=== PATIENT | female | born 1940 | race Caucasian/White ===

== ENCOUNTER 2017-08-05 16:53 | Observation (INO) | payer MEDICARE ==
[~2017-08-05 16:53] MED LIST: ISOVUE-370 76%-LOCM 1 ML ONE
[2017-08-05 17:30] LABS: #Basophils 0.1 thou/uL (0.0-0.2); #Eosinphils 0.4 thou/uL (0.0-0.7); #Lymphocytes 1.3 thou/uL (1.20-3.40); #Monocytes 1.1 thou/uL (0.11-0.59); #Neutrophils 11.8 thou/uL (1.40-6.50); %Basophils 0.3 % (0.0-1.0); %Eosinophils 2.7 % (0.0-10.0); %Lymphocytes 8.7 % (21.0-51.0); %Monocytes 7.5 % (0.0-10.0); %Neutrophils 80.7 % (42.0-75.0); Hemoglobin 12.9 g/dL (12.0-16.0); Mean Corpuscular HGB CONC 32.6 g/dL (32.0-36.0); Mean Corpuscular Hemoglobin 29.9 pg (27.0-31.0); Mean Corpuscular Volume 91.8 fL (78.0-98.0); Mean Platelet Volume 5.8 fL (7.4-10.4); Platelet Count 296 thou/uL (130-400); RBC Distribution Width 11.7 % (11.5-14.5); Red Blood Cell (RBC) Count 4.31 mill/uL (4.20-5.40); White Blood Cell (WBC) Count 14.6 thou/uL (4.8-10.8)
--- NOTE | 2017-08-05 17:47 | RAD ---
RADIOGRAPH CHEST 1 VIEW: Date: 08/05/17 Time: 5:23 p.m. HISTORY: 76-year-old female with dyspnea and chest pain. COMPARISON: 09/13/16. FINDINGS: Sternotomy wires. Multilead left subclavian AICD, the generator of which partially obscures the left lung. No cardiomegaly. Prominent interstitial markings, especially at lower lung zones bilaterally. P atchy air space densities at right lower lung zone is similar in appearance to the previous study. Th e only possible interval change is mild pulmonary scar or subsegmental atelectasis at the left mid an d lower lung zones on the current study. No pneumothorax. No major interval change overall. IMPRESSION: 1. Air space density at right lower lung zone which appears similar to 09/13/16. Uncertain whether chronic or recurrent acute. 2. Automatic implantable cardioverter/defibrillator. TEQUILA [] POS: RANI
[2017-08-05 17:58] LABS: ALT (SGPT) 15 U/L (8-55); AST (SGOT) 27 U/L (5-34); Albumin 3.7 g/dL (3.4-4.8); Alkaline Phosphatase 121 U/L (40-150); Anion Gap 13 mmol/L (10-20); BUN (Urea Nitrogen) 14 mg/dL (9.8-20.1); Bilirubin, Total 0.5 mg/dL (0.2-1.2); CK (CPK) 248 U/L (29-168); Calc. Creatinine Clearance 0 mL/min (70-130); Calcium 9.5 mg/dL (7.8-10.44); Carbon Dioxide 27 mmol/L (23-31); Chloride 99 mmol/L (98-107); Estimated GFR-MDRD 39; Globulin 3.8 g/dL (2.4-3.5); Glucose 79 mg/dL (83-110); Potassium 4.7 mmol/L (3.5-5.1); Protein, Total 7.5 g/dL (6.0-8.3); Sodium 134 mmol/L (136-145)
[2017-08-05] MEDS ORDERED: Levalbuterol HCl 1.25 MG/0.5 ML NEB NEB SCH (18:00)
[2017-08-05 18:03] LABS: Troponin I 0.019 ng/mL (< 0.028)
[2017-08-05 18:07] LABS: CKMB 9.5 ng/mL (0-6.6)
[2017-08-05] MEDS ORDERED: Dexamethasone 4 mg/ml Vial ONE ×2 (18:13→19:50)
--- NOTE | 2017-08-05 19:45 | CT ---
CTA THORAX WITH CONTRAST: (Computed Tomographic Angiography, chest(noncoronary) with contrast material, and image postprocessin g) (PE protocol) DATE: 08/05/17 TIME: 6:48 p.m. HISTORY: 76-year-old female with productive cough. TECHNIQUE: IV injection of iodinated contrast: 60 mL Isovue 370 Scan acquisition timing attempted to coincide with iodinated contrast bolus reaching maximal density in pulmonary arteries. 3D MIP reconstructions. FINDINGS: There is good opacification of the pulmonary arteries. There is no pulmonary thromboembolism. Atheros clerotic plaque, ectasia and tortuosity, without aneurysm or dissection, involving the thoracic aorta . Confluent mediastinal subcarinal lymphadenopathy of moderate size. Mild bilateral hilar lymphadenop athy, left greater than right. Right pretracheal and left paratracheal moderate sized lymphadenopathy . Trachea and left and right mainstem bronchi are patent and clear. Irregular, patchy, moderate pulmonary densities in the bilateral lower lobes, predominantly in peribr onchiolar and perivascular distributions. Multiple small cystic lung changes centrally in the right b asilar lower lobe infiltrate. Similar but smaller such pulmonary lesions in the lingula, and to a les ser degree bilateral upper lobes, and right middle lobe. No pleural effusion or pneumothorax. Left mathews bclavian AICD. IMPRESSION: 1. No pulmonary thromboembolism. 2. Bilateral infiltrates, moderate in the bilateral lower lobes, and milder elsewhere. Uncertain whether chronic, acute, or a combination of both. 3. Nonspecific mediastinal and hilar lymphadenopathy. shad[] POS: RANI
[2017-08-05] MEDS ORDERED: Sodium Chloride 0.9% 100 ML ONE ×2 (20:43→20:53)
[2017-08-05] MEDS ORDERED: cefTRIAXone\\ROCEPHIN 2 GM VIAL ONE (20:53)
[2017-08-05] MEDS ORDERED: Azithromycin 500 MG VIAL ONE (21:49)
[2017-08-05] MEDS ORDERED: Ondansetron HCl/PF 4 MG/2 ML Vial IVP PRN (22:50)
[2017-08-05] MEDS ORDERED: Acetaminophen 325 MG TAB PO PRN (22:50)
[2017-08-05] MEDS ORDERED: Ondansetron ODT 4 MG TAB SL PRN (22:50)
[2017-08-05 22:59] VITALS: BMI 30.2
[2017-08-05 23:48] LABS: Troponin I Less than 0.010 ng/mL (< 0.028)
[2017-08-06] MEDS ORDERED: HYDROcodone/Acetaminophen 5/325 mg Tablet PO SCH (00:15)
[2017-08-06] MEDS ORDERED: Acetaminophen 325 MG TAB PO PRN (00:35)
[2017-08-06] MEDS ORDERED: HYDROcodone/Acetaminophen 7.5/325 mg Tablet PO PRN (00:35)
[2017-08-06] MEDS ORDERED: Oxybutynin 5 MG TAB PO PRN (00:39)
[2017-08-06] MEDS ORDERED: Furosemide 20 MG TAB PO PRN (00:39)
[2017-08-06] MEDS ORDERED: Levalbuterol HCl 0.63 MG/3 ML NEB NEB PRN (00:40)
[2017-08-06] MEDS ORDERED: Ipratropium Bromide 2.5 ml Neb NEB PRN (00:41)
--- NOTE | 2017-08-06 01:29 | HP ---
PRIMARY CARE PHYSICIAN: Mono Nunez MD CHIEF COMPLAINT: Shortness of breath. HISTORY OF PRESENT ILLNESS: Ms. An is a pleasant 76-year-old lady who was seen at [facility] on 08/06/2017. She reports shortness of breath over the last 3 or 4 days. She r eports that the shortness of breath is worse with exertion. She denies any orthopnea or paroxysmal n octurnal dyspnea. She complains of cough. Cough is productive of clear sputum. She denies any feve rs or chills. She uses oxygen at home during the night, at 2 liters per minute. She came to the emergency room because of ongoing shortness of breath. REVIEW OF SYSTEMS: All other systems reviewed and found to be negative. PAST MEDICAL HISTORY: Coronary artery disease, status post PCI with stents, congestive heart failure , asthma, chronic obstructive pulmonary disease, chronic renal insufficiency, and spinal stenosis. PAST SURGICAL HISTORY: Coronary artery bypass graft, back surgery, cholecystectomy, section , hysterectomy, left knee surgery, and defibrillator placement. PSYCHIATRIC HISTORY: Anxiety and depression. SOCIAL HISTORY: Patient denies tobacco use, alcohol use, or recreational drug use. CODE STATUS: She is FULL CODE. Her daughter is the surrogate decision maker. ALLERGIES: ALBUTEROL, FENTANYL, OPANA, PENICILLIN, PREDNISONE, SOLU-MEDROL, SULFA, TORADOL, TRAMADOL , and TYLENOL #3. CURRENT MEDICATIONS: Include ProAir HFA 2 puffs every 6 hours as needed, Xanax 0.25 mg 3 times a day , aspirin 81 mg daily, Symbicort 160/4.5 two puffs 2 times a day, Plavix 37.5 mg daily, dextromethorp parkinson 20 mg every 4 hours as needed, Lexapro 20 mg daily, estradiol 0.5 mg daily, Vytorin half a tablet every other day, Lasix 20 mg as needed, Neurontin 600 mg at bedtime, [place] p.r.n., Atrovent 2 puffs 3 times a day, Prevacid 15 mg daily, Singulair 10 mg daily, oxybutynin 5 mg daily as needed, potassiu m chloride 20 mEq at bedtime, Aldactone 25 mg daily, and Ambien 5 mg at bedtime. FAMILY HISTORY: Significant for coronary artery disease and colon cancer. PHYSICAL GENERAL: Ms. An is awake and alert, not in acute distress. VITAL SIGNS: Blood pressure is 148/82, pulse is 84. She is breathing at rate of 18, and saturating 95% on 2 liters of oxygen. She is afebrile. EYES: No scleral icterus, no conjunctival pallor. ENT: Moist mucosal membranes, no oropharyngeal erythema or exudates. NECK: Supple, nontender, normal range of movement, trachea is midline. RESPIRATORY: Accessory muscles of breathing are active. Chest wall movements are symmetric bilatera lly. She has diffused expiratory wheezes, overall lung edward. CARDIOVASCULAR: S1 and S2 are heard, regular. Peripheral pulses palpable. No carotid bruit, no per icardial rub. ABDOMEN: Soft, nontender, bowel sounds heard, no hepatomegaly, no splenomegaly. SKIN: No rashes or subcutaneous nodules. LYMPHATIC: No cervical lymphadenopathy. NEUROLOGIC: Cranial nerves II-XII intact. Deep tendon reflexes 2+. MUSCULOSKELETAL: Power is 5/5 in all 4 extremities. PSYCHIATRIC: Normal mood, normal affect. Patient is oriented to person and place, not to time. LABORATORY DATA: Ms. An's labs and investigations were reviewed. I reviewed her electrocardiogr am, which shows atrial sensed ventricular paced rhythm, no ST changes to suggest an acute coronary sy ndrome. I also reviewed her chest x-ray, which shows right lower lobe infiltrate, which was also on old chest x-ray from 09/13/2016. She also had CT angiogram of the chest, which did not show any pulm onary thromboembolism. She has bilateral infiltrates as well as nonspecific mediastinal and hilar ly mphadenopathy. She has leukocytosis with 14,600 white cells, of which 80.7% are neutrophils, normal hemoglobin, normal platelet count, elevated D-dimer of 2.15, decreased sodium of 134, normal potassiu m, elevated creatinine of 1.32, last known creatinine 1.17 on 09/13/2016, elevated CK of 248, normal troponin I x2, normal BNP, and normal albumin. ASSESSMENT AND PLAN: Ms. An is a pleasant 76-year-old lady who was seen at [facility] on 08/06/2017. Her problem list includes: 1. Acute on chronic respiratory failure: Ms. An is presenting with acute on chronic respiratory failure, most likely secondary to chronic obstructive pulmonary disease exacerbation. She will be a dmitted to the hospital for further management. 2. Chronic obstructive pulmonary disease exacerbation: She will receive oxygen, steroids, bronchodi lators, and antibiotics. She has received ceftriaxone and azithromycin in the emergency room, which I will continue. Given her allergy to ALBUTEROL, she will receive Xopenex nebulizers. Given her all ergy to PREDNISONE, she will be given dexamethasone. She has received dexamethasone and Xopenex in t emergency room without any adverse effects. 3. Coronary artery disease. Patient denies any chest pain at this time, coronary artery disease rajiv ears to be stable. 4. Chronic kidney disease: Appears to be stable. 5. Congestive heart failure. She has a history of congestive heart failure. She does not appear to be in congestive heart failure exacerbation at this time. Many thanks for allowing me to participate in your patient's care. Please feel free to contact me wi th any questions or concerns. LEVEL OF RISK: High. LEVEL OF COMPLEXITY: High.
[2017-08-06] MEDS ORDERED: Ipratropium Bromide 2.5 ml Neb NEB SCH (02:30)
[2017-08-06] MEDS ORDERED: Levalbuterol HCl 1.25 MG/0.5 ML NEB NEB SCH (02:30)
[2017-08-06] MEDS ORDERED: Sodium Chloride For Inhalation 0.9% 3 ML NEB NEB SCH (02:30)
[2017-08-06] MEDS: Ipratropium Bromide 2.5 ml Neb NEB SCH ×3 (02:32→12:28)
[2017-08-06 03:06] LABS: #Eosinphils 0.1 thou/uL (0.0-0.7); #Lymphocytes 0.6 thou/uL (1.20-3.40); #Monocytes 0.1 thou/uL (0.11-0.59); #Neutrophils 15.1 thou/uL (1.40-6.50); %Eosinophils 0.5 % (0.0-10.0); %Lymphocytes 3.8 % (21.0-51.0); %Monocytes 0.8 % (0.0-10.0); %Neutrophils 94.9 % (42.0-75.0); Hemoglobin 13.4 g/dL (12.0-16.0); Mean Corpuscular HGB CONC 33.2 g/dL (32.0-36.0); Mean Corpuscular Hemoglobin 30.2 pg (27.0-31.0); Mean Corpuscular Volume 91.2 fL (78.0-98.0); Mean Platelet Volume 5.6 fL (7.4-10.4); Platelet Count 288 thou/uL (130-400); RBC Distribution Width 11.8 % (11.5-14.5); Red Blood Cell (RBC) Count 4.42 mill/uL (4.20-5.40); White Blood Cell (WBC) Count 15.9 thou/uL (4.8-10.8)
[2017-08-06 03:43] LABS: Troponin I 0.013 ng/mL (< 0.028)
[2017-08-06 03:48] LABS: Anion Gap 16 mmol/L (10-20); BUN (Urea Nitrogen) 12 mg/dL (9.8-20.1); Calc. Creatinine Clearance 49 mL/min (70-130); Calcium 9.7 mg/dL (7.8-10.44); Carbon Dioxide 22 mmol/L (23-31); Chloride 101 mmol/L (98-107); Estimated GFR-MDRD 47; Glucose 154 mg/dL (83-110); Potassium 5.1 mmol/L (3.5-5.1); Sodium 134 mmol/L (136-145)
[2017-08-06] MEDS ORDERED: Mometasone/Formoterol 120 PUFF INHALER INH SCH (06:30)
[2017-08-06] MEDS ORDERED: Ipratropium Oral Inhaler (200 INHALATIONS) INH SCH (06:30)
[2017-08-06] MEDS: Levalbuterol HCl 0.63 MG/3 ML NEB NEB SCH ×2 (06:46→12:40)
[2017-08-06] MEDS ORDERED: Dexamethasone 4 MG TAB PO SCH (08:00)
[2017-08-06] MEDS ORDERED: Spironolactone 25 MG TAB PO SCH (08:00)
[2017-08-06] MEDS ORDERED: Clopidogrel Bisulfate 75 MG TAB PO SCH (09:00)
[2017-08-06] MEDS ORDERED: Ezetimibe 10 MG TAB PO SCH (09:00)
[2017-08-06] MEDS ORDERED: Enoxaparin Sodium 30 MG/0.3 ML SYRINGE SC SCH (09:00)
[2017-08-06] MEDS ORDERED: ALPRAZolam 0.25 MG TAB PO SCH (09:00)
[2017-08-06] MEDS ORDERED: Escitalopram Oxalate 20 mg Tablet PO SCH (09:00)
[2017-08-06] MEDS ORDERED: SODIUM CHLORIDE 0.9% IVPB SCH (09:00)
[2017-08-06] MEDS ORDERED: cefTRIAXone\\ROCEPHIN 1 GM in Sodium Chloride 0.9% 100 ML IVPB SCH ×2 (09:00→21:00)
[2017-08-06] MEDS ORDERED: DEXAMETHASONE IVPB SCH (09:00)
[2017-08-06] MEDS ORDERED: Estradiol 1 MG TAB PO SCH (09:00)
[2017-08-06] MEDS ORDERED: Montelukast Sodium 10 mg Tablet PO SCH (09:00)
[2017-08-06] MEDS: Dextromethorphan Polistirex 30 MG/5 ML (89 ML BOTTLE) PO SCH (10:20)
[2017-08-06 11:14] VITALS: BP 141/68; TEMP 97.8
[2017-08-06] MEDS ORDERED: Levalbuterol HCl 0.63 MG/3 ML NEB NEB SCH (13:00)
[2017-08-06] MEDS ORDERED: Simvastatin 5 MG TAB PO SCH (21:00)
[2017-08-06] MEDS ORDERED: Gabapentin 300 MG CAP PO SCH (21:00)
[2017-08-06] MEDS ORDERED: Potassium Chloride 20 MEQ TAB PO SCH (21:00)
[2017-08-06] MEDS ORDERED: Zolpidem Tartrate 5 MG TAB PO SCH (21:00)
[2017-08-06] MEDS ORDERED: Azithromycin 500 MG in Sodium Chloride 0.9% 250 ML 250 ML IVPB SCH (22:00)
--- NOTE | 2017-08-06 22:45 | DIS ---
DATE OF ADMISSION: 08/05/2017 DATE OF DISCHARGE: 08/06/2017 PRIMARY CARE PHYSICIAN: Dr. Mono Nunez. MEDICATIONS: Reconciled and unchanged at discharge. 1. Xanax 0.25 mg t.i.d. 2. Symbicort 160/4.5 two puffs b.i.d. 3. Plavix 75 mg one-half tablet daily. 4. Dextromethorphan 20 mL every 4 hours as needed. 5. Lexapro 20 mg daily. 6. Estradiol 0.5 mg daily. 7. Vytorin 10 mg-10 mg 0.5 tablet every other day. 8. Lasix 20 mg - one or two tablets daily as needed for swelling 9. Neurontin 600 mg at bedtime. 10. [place] 10/325 one or two tablets every 4 hours as needed. 11. Atrovent 4 puffs four times a day. 12. Prevacid 15 mg daily. 13. Singulair 10 mg daily. 14. Oxybutynin 5 mg daily as needed. 15. Potassium chloride 20 mEq at bedtime. We will take an extra dose if she uses Lasix. 16. Aldactone 25 mg daily. 17. Ambien 5 mg at bedtime. Medications removed from list as pt reports she does not take: 1. Aspirin 81 mg 2. ProAir FINAL DIAGNOSES: 1. Acute on chronic respiratory failure, resolved. 2. Chronic hypoxia requiring supplemental oxygen. 3. Known chronic obstructive pulmonary disease, asthma, and possibly other lung diseases. 4. Coronary artery disease with history of stents and coronary artery bypass grafting and AICD in place. 5. Chronic back pain. 6. Chronic kidney disease, stable. 7. Bilateral infiltrates on CT exam and nonspecific hilar and mediastinal lymphadenopathy. HISTORY OF PRESENT ILLNESS: Ms. An is a 76-year-old lady with history of COPD, coronary artery disease, chronic kidney disease, who presents to the emergency room with her family. She reports they said she is not breathing well , however she denies any problems. Patient relates a history that she has been taking Benadryl over the past few days due to a rash and woke up on the commode at home. She states she fell asleep secondary to the Benadryl and when she woke up, her legs were numb and she could not walk. She called her grandson, who was concerned that she was not breathing well. Other family was called and patient ultimately ended up in the emergency room. She denies any difficulty with breathing. She does report some chronic cough that is slightly productive, denies any fevers, chills, chest pain, nausea, or vomiting. HOSPITAL COURSE: Patient was started on antibiotics to cover for a COPD exacerbation as well as steroids with dexamethasone. On day of discharge, she reports her breathing is at baseline. She denies any desire to remain in the hospital and requests discharge to home. She also declines continuing any steroids or antibiotics that she does not feel that she has been sick. She feels that this hospitalization was unnecessary and only because of the concern of her family rather than her concerns. Patient uses intermittent oxygen at home during the day and continuous at night. She has been wearing it with ambulation and at rest with sats of at least 94% at rest with 0.5L NC. Patient does have some dry sounding rales on exam, I am uncertain if this is chronic and related to a possible interstitial lung disease component, if related to her heart, although her BNP is low. This was discussed with her Concrete Plant Laborer Dr. Shepard who reports a similar exam in the past. He also states her fluid status has been stable up to July 26 and requests that she transmit her device on arrival home so he can evaluate for changes. With that information, with any concerns, she will be contacted with changes to medications or for an appointment. Given the patient is at her reported baseline, declines steroids and antibiotics , she does meet criteria for discharge to home. She is aware of return for care precautions, and will follow up with her Plodding Machine Operator Dr. Ortiz with any concerns. PHYSICAL EXAMINATION: VITAL SIGNS: On day of discharge, temperature 97.8, pulse 70, respirations 18, saturation is 93%, and the computer reports nasal cannula, the patient is on room air, blood pressure 141/68. GENERAL: Awake, alert, responsive, speaking clearly in full sentences, in no apparent distress. LUNGS: Some bilateral rales at the bases that sound dry, good air movement, no audible wheezing or rhonchi. HEART: Normal S1, S2, regular rate and rhythm. No significant murmur. ABDOMEN: Soft. Present bowel sounds. Nontender, nondistended. EXTREMITIES: No clubbing, cyanosis, or edema. PACKER FINDINGS AND TEST RESULTS: 1. CBC: 15.9, 13.4, 40.3, 288. 2. D-dimer was 2.15. 3. Chemistry: 134, 5.1, 101, 22, 12, 1.13 with a glucose of 154. 4. Troponin x3 are negative. 5. BNP 23. 6. Total protein 7.5, albumin 3.7, alkaline phosphatase 121. AST 27, ALT 15. CT angiogram is negative for PE, it does show bilateral infiltrates, moderate in the bilateral lower lobes, uncertain chronic acute or combination, and nonspecific mediastinal and hilar lymphadenopathy. Chest x-ray shows air space density at the right lower lung zone, which appears similar to 09/2016, uncertain of chronic or recurrent and AICD. DIET: Heart-healthy, per the instructions of her health care social worker. CODE STATUS: FULL. ACTIVITIES: As tolerated, patient does report wearing of oxygen at night and if needed during the day. I Reviewed with patient this hospitalization, the importance of followup as with the primary care provider as well as her health care social worker, and her shoe cutter, Dr. Ortiz as needed, to see care precautions. She demonstrates understanding. Total time coordinating discharge is 45 minutes. FOLLOWUP: 1. To transmit her device information today for Dr. Shepard/Cardiology. His office will contact her with any changes or appointment needs. 2. With the primary care provider Dr. Nunez within a week. 3. With any breathing concerns, please follow up with Dr. Ortiz. [facility]
[2017-08-07] MEDS ORDERED: Enoxaparin Sodium 40 MG/0.4 ML SYRINGE SC SCH (09:00)
--- NOTE | 2017-08-09 12:58 | EKG ---
Test Reason : Blood Pressure : / mmHG Vent. Rate : 082 BPM Atrial Rate : 082 BPM P-R Int : 138 ms QRS Dur : 100 ms QT Int : 390 ms P-R-T Axes : 050 105 081 degrees QTc Int : 455 ms Atrial-sensed ventricular-paced rhythm Biventricular pacemaker detected Abnormal ECG Confirmed by DARRYL KILGORE, ALEX ([id number]), content editor KIM SHER ([id number]) on 08/09/2017 12:57:39 PM Referred By: Confirmed By:ALEX ANDREWS MD
== END 2017-08-06 14:30 | disposition home or self-care (01) ==
LOC: ERS 16:53 → T4-B 20:14
PROVIDERS: ADMIT Emergency Medicine; ATTEND Emergency Medicine
DX: J96.21 Acute and chronic respiratory failure with hypoxia (principal); J44.1 Chronic obstructive pulmonary disease with (acute) exacerbation; I25.10 Atherosclerotic heart disease of native coronary artery without angina pectoris; N18.9 Chronic kidney disease, unspecified; I50.9 Heart failure, unspecified; G89.29 Other chronic pain; M54.9 Dorsalgia, unspecified; Z79.82 Long term (current) use of aspirin; Z79.02 Long term (current) use of antithrombotics/antiplatelets; Z79.899 Other long term (current) drug therapy; Z88.0 Allergy status to penicillin; Z88.2 Allergy status to sulfonamides; Z88.5 Allergy status to narcotic agent; Z88.8 Allergy status to other drugs, medicaments and biological substances; Z91.048 Other nonmedicinal substance allergy status; Z95.5 Presence of coronary angioplasty implant and graft; Z99.81 Dependence on supplemental oxygen
CPT/HCPCS: 71045; 71275; 80048; 80053; 82550; 82553; 83880; 84484 ×3; 85025 ×2; 85379; 93005; 94640 ×3; 94664; 94760; 96365; 96367; 96372; 96375; 96376; 99285; G0378; 36415; A4216; J0456; J0696; J1100; J1650; J7050; J7612; J7614; J7644; J8540

== ENCOUNTER 2017-10-09 12:21 | Outpatient (CLI) | payer MEDICARE | END 2017-10-09 12:22 | disposition home or self-care (01) | LOC: BICRAD 12:21 | PROVIDERS: ATTEND Internal Medicine Pulmonary Disease | DX: R05 Cough (principal) | CPT/HCPCS: 71046 ==

== ENCOUNTER 2018-02-05 18:33 | Emergency (ER) | payer MEDICARE ==
[2018-02-05 19:29] LABS: #Eosinphils 0.2 thou/uL (0.0-0.7); #Lymphocytes 1.3 thou/uL (1.20-3.40); #Monocytes 0.8 thou/uL (0.11-0.59); #Neutrophils 5.3 thou/uL (1.40-6.50); %Basophils 0.2 % (0.0-1.0); %Eosinophils 3.3 % (0.0-10.0); %Lymphocytes 16.8 % (21.0-51.0); %Monocytes 10.7 % (0.0-10.0); Hemoglobin 13.8 g/dL (12.0-16.0); Mean Corpuscular HGB CONC 32.7 g/dL (32.0-36.0); Mean Corpuscular Hemoglobin 28.3 pg (27.0-31.0); Mean Corpuscular Volume 86.6 fL (78.0-98.0); Mean Platelet Volume 6.8 fL (7.4-10.4); Platelet Count 240 thou/uL (130-400); RBC Distribution Width 12.8 % (11.5-14.5); Red Blood Cell (RBC) Count 4.88 mill/uL (4.20-5.40); White Blood Cell (WBC) Count 7.6 thou/uL (4.8-10.8)
--- NOTE | 2018-02-05 19:30 | RAD ---
TWO VIEWS OF THE CHEST: 02/05/18 COMPARISON: 03/19/16 HISTORY: Shortness of breath for two to three days that is getting worse. FINDINGS: Two views of the chest show normal sized cardiomediastinal silhouette. The patient is status post fredi rnotomy. The pacemaker is unchanged in position. Increased interstitial markings are present. There i s no evidence of consolidation, mass, or pleural effusion. IMPRESSION: No evidence of acute cardiopulmonary disease. POS: [facility]
[2018-02-05 19:55] LABS: ALT (SGPT) 13 U/L (8-55); AST (SGOT) 23 U/L (5-34); Albumin 4.2 g/dL (3.4-4.8); Alkaline Phosphatase 114 U/L (40-150); Anion Gap 13 mmol/L (10-20); BUN (Urea Nitrogen) 13 mg/dL (9.8-20.1); Bilirubin, Total 0.5 mg/dL (0.2-1.2); Calc. Creatinine Clearance 0 mL/min (70-130); Calcium 9.8 mg/dL (7.8-10.44); Carbon Dioxide 32 mmol/L (23-31); Chloride 98 mmol/L (98-107); Estimated GFR-MDRD 37; Globulin 3.6 g/dL (2.4-3.5); Glucose 76 mg/dL (83-110); Potassium 4.5 mmol/L (3.5-5.1); Protein, Total 7.8 g/dL (6.0-8.3); Sodium 138 mmol/L (136-145)
[2018-02-05] MEDS ORDERED: Sodium Chloride For Inhalation 0.9% 3 ML NEB NEB SCH (20:30)
[2018-02-05] MEDS ORDERED: Levalbuterol HCl 1.25 MG/0.5 ML NEB NEB SCH (20:30)
[2018-02-05] MEDS ORDERED: Levofloxacin 500 mg/D5W 100 ml Premix Bag ONE (20:38)
[2018-02-05] MEDS ORDERED: Dexamethasone 4 mg/ml Vial ONE (20:38)
== END 2018-02-05 21:59 | disposition home or self-care (01) ==
LOC: ERS 18:33
DX: J44.1 Chronic obstructive pulmonary disease with (acute) exacerbation (principal); I25.10 Atherosclerotic heart disease of native coronary artery without angina pectoris; I50.9 Heart failure, unspecified; F41.9 Anxiety disorder, unspecified; F32.9 Major depressive disorder, single episode, unspecified; Z87.891 Personal history of nicotine dependence; Z79.899 Other long term (current) drug therapy; Z79.82 Long term (current) use of aspirin
CPT/HCPCS: 36415; 71046; 80053; 85025; 87804; 96365; 96375; J1100; J1956; J7612

== ENCOUNTER 2018-04-04 21:44 | Emergency (ER) | payer MEDICARE ==
[2018-04-04] MEDS ORDERED: Acetaminophen 500 MG TAB ONE (23:44)
[2018-04-05 00:10] LABS: Bilirubin Negative (Negative); Blood, Urine Negative (Negative); Clarity CLEAR (Clear); Glucose, Urine (Dipstick) Negative (Negative); Leukocyte Negative (Negative); Nitrite Negative (Negative); Protein, Urine (Dipstick) Trace mg/dL (Neg-Trace); Specific Gravity, Urine 1.015 (1.002-1.036); pH, Urine 7.5 (5.0-9.0)
[2018-04-05 00:25] LABS: #Eosinphils 0.3 thou/uL (0.0-0.7); #Lymphocytes 1.9 thou/uL (1.20-3.40); #Monocytes 1.6 thou/uL (0.11-0.59); #Neutrophils 14.7 thou/uL (1.40-6.50); %Basophils 0.2 % (0.0-1.0); %Eosinophils 1.5 % (0.0-10.0); %Lymphocytes 10.4 % (21.0-51.0); %Monocytes 8.6 % (0.0-10.0); %Neutrophils 79.2 % (42.0-75.0); Hemoglobin 13.4 g/dL (12.0-16.0); Mean Corpuscular HGB CONC 31.4 g/dL (32.0-36.0); Mean Corpuscular Hemoglobin 27.7 pg (27.0-31.0); Mean Corpuscular Volume 88.4 fL (78.0-98.0); Mean Platelet Volume 6.7 fL (7.4-10.4); Platelet Count 220 thou/uL (130-400); RBC Distribution Width 12.9 % (11.5-14.5); Red Blood Cell (RBC) Count 4.84 mill/uL (4.20-5.40); White Blood Cell (WBC) Count 18.5 thou/uL (4.8-10.8)
[2018-04-05 00:49] LABS: ALT (SGPT) 12 U/L (8-55); AST (SGOT) 17 U/L (5-34); Albumin 3.7 g/dL (3.4-4.8); Alkaline Phosphatase 95 U/L (40-150); Anion Gap 12 mmol/L (10-20); BUN (Urea Nitrogen) 14 mg/dL (9.8-20.1); Bilirubin, Total 0.5 mg/dL (0.2-1.2); Calc. Creatinine Clearance 0 mL/min (70-130); Calcium 9.1 mg/dL (7.8-10.44); Carbon Dioxide 23 mmol/L (23-31); Chloride 102 mmol/L (98-107); Estimated GFR-MDRD 49; Globulin 3.3 g/dL (2.4-3.5); Glucose 83 mg/dL (83-110); Potassium 4.2 mmol/L (3.5-5.1); Sodium 133 mmol/L (136-145)
--- NOTE | 2018-04-05 08:40 | RAD ---
PORTABLE UPRIGHT FRONTAL CHEST RADIOGRAPH: DATE: 04/04/2018. COMPARISON: 11/23/2017. History Fever, cough, and shortness of breath. FINDINGS: Coarse increased linear interstitial densities are noted, stable, with a basilar predominance. Midli ne sternotomy wires and multilead AICDE in stable position. Postoperative anchors overlie the wesley l head on the right. There is no pneumothorax, pleural fluid, focal consolidation, or alveolar edema . IMPRESSION: Stable appearance of the chest - no acute findings. POS: RANI
== END 2018-04-05 01:33 | disposition home or self-care (01) ==
LOC: ERS 21:44
DX: J11.1 Influenza due to unidentified influenza virus with other respiratory manifestations (principal); I50.9 Heart failure, unspecified; J44.9 Chronic obstructive pulmonary disease, unspecified; I25.10 Atherosclerotic heart disease of native coronary artery without angina pectoris; F41.9 Anxiety disorder, unspecified; F32.9 Major depressive disorder, single episode, unspecified; Z87.891 Personal history of nicotine dependence; Z79.82 Long term (current) use of aspirin; Z79.899 Other long term (current) drug therapy; Z79.51 Long term (current) use of inhaled steroids; Z79.01 Long term (current) use of anticoagulants
CPT/HCPCS: 36415; 71045; 80053; 81003; 84484; 85025; 87804; 93005

== ENCOUNTER 2018-05-22 11:03 | Outpatient (CLI) | payer MEDICARE ==
--- NOTE | 2018-05-22 13:13 | RAD ---
XR Chest Pa Lat STANDARD HISTORY: Pneumonia COMPARISON: 02/05/2018 FINDINGS: Changes of median sternotomy are again seen. The left-sided AICD is unchanged in position. The lungs are well expanded with stable chronic changes. No lobar consolidation, pneumothoraces or pleural effusions are seen. There are postoperative changes of right rotator cuff repair. IMPRESSION: No acute process.
== END 2018-05-22 11:04 | disposition home or self-care (01) ==
LOC: BICRAD 11:03
PROVIDERS: ATTEND Family Medicine
DX: J18.9 Pneumonia, unspecified organism (principal)
CPT/HCPCS: 71046

== ENCOUNTER 2018-12-18 19:03 | Emergency (ER) | payer MEDICARE ==
[2018-12-18] MEDS ORDERED: Dexamethasone 4 mg/ml Vial ONE (20:23)
--- NOTE | 2018-12-18 20:45 | RAD ---
TWO VIEWS CHEST: 12/18/18 PROVIDED CLINICAL HISTORY: Cough. COMPARISON: 05/22/18. Cardiac and mediastinal silhouette is unchanged in appearance. Median sternotomy changes are again se en. Left subclavian cardiac pacing device is again noted. Prominence of the pulmonary interstitium pe rsists. No superimposed air space disease, pleural fluid or pneumothorax apparent. IMPRESSION: Stable radiographic appearance of the chest. POS: [facility]
== END 2018-12-18 21:25 | disposition home or self-care (01) ==
LOC: ERS 19:03
DX: J18.9 Pneumonia, unspecified organism (principal); I25.10 Atherosclerotic heart disease of native coronary artery without angina pectoris; I50.9 Heart failure, unspecified; J44.9 Chronic obstructive pulmonary disease, unspecified; F41.9 Anxiety disorder, unspecified; Z87.891 Personal history of nicotine dependence; Z79.51 Long term (current) use of inhaled steroids; Z79.899 Other long term (current) drug therapy
CPT/HCPCS: 71046; 94640; J1100; J7620

== ENCOUNTER 2019-01-23 18:04 | Inpatient (IN) | payer MEDICARE ==
[~2019-01-23 18:04] MED LIST changes: -ISOVUE-370 76%-LOCM 1 ML ONE; +Iopamidol-370 76% 500 ML 1 ML ONE
--- NOTE | 2019-01-23 18:57 | RAD ---
Chest AP view INDICATION: Chest pain COMPARISON: December 18, 2018 FINDINGS: Lungs:There is worsening airspace opacity of both lower lobes. This superimposed on severe interstiti al fibrotic change of the lungs. Cardiac silhouette:There is stable mild cardiomegaly. There is a stable AICD. There is stable postsur gical change of a prior CABG. Pulmonary vasculature:Normal Pleural spaces:There are small bilateral pleural effusions Upper abdomen:No abnormality seen. Osseous structures: There is stable postprocedural change of a right rotator cuff repair. There is sc attered degenerative and osteoarthritic change present. Additional findings:None. IMPRESSION: Bibasilar pneumonia. Recommend radiographic follow-up to resolution. Small bilateral pleu ral effusions. Stable cardiomegaly. Stable chronic lung changes.
[2019-01-23 19:08] LABS: Hemoglobin 12.9 g/dL (12.0-16.0); Mean Corpuscular HGB CONC 33.2 g/dL (32.0-36.0); Mean Corpuscular Hemoglobin 28.9 pg (27.0-31.0); Mean Corpuscular Volume 87.1 fL (78.0-98.0); Mean Platelet Volume 6.8 fL (7.4-10.4); Platelet Count 170 thou/uL (130-400); RBC Distribution Width 12.3 % (11.5-14.5); Red Blood Cell (RBC) Count 4.45 mill/uL (4.20-5.40)
[2019-01-23] MEDS ORDERED: cefTRIAXone\\ROCEPHIN 2 GM VIAL ONE (19:19)
[2019-01-23] MEDS ORDERED: Dexamethasone 10 MG/ML VIAL ONE (19:19)
[2019-01-23] MEDS ORDERED: Magnesium 2 GM/50 ML BAG (IN WATER) ONE (19:19)
[2019-01-23 19:27] LABS: Band 12 % (5-11); Eosinophils 1 % (0-10); Lymphocytes 3 % (21-51); MDiff Complete? YES; Monocytes 2 % (0-10); Neutrophil 82 % (42-75); Platelet Morphology Comment Appears Adequate; RBC Morphology Normal; Vacuoles SLIGHT
[2019-01-23 19:29] LABS: ALT (SGPT) 11 U/L (8-55); AST (SGOT) 26 U/L (5-34); Alkaline Phosphatase 95 U/L (40-110); Anion Gap 18 mmol/L (10-20); BUN (Urea Nitrogen) 23 mg/dL (9.8-20.1); Bilirubin, Total 0.8 mg/dL (0.2-1.2); Calc. Creatinine Clearance 0 mL/min (70-130); Calcium 9.1 mg/dL (7.8-10.44); Carbon Dioxide 21 mmol/L (23-31); Chloride 101 mmol/L (98-107); Estimated GFR-MDRD 31; Globulin 2.7 g/dL (2.4-3.5); Glucose 95 mg/dL (83-110); Potassium 5.1 mmol/L (3.5-5.1); Protein, Total 6.7 g/dL (6.0-8.3); Sodium 135 mmol/L (136-145)
--- NOTE | 2019-01-23 20:32 | CT ---
CT OF THE ABDOMEN AND PELVIS WITH IV CONTRAST INDICATION: Diffuse abdominal pain COMPARISON: September 13, 2016 FINDINGS: ABDOMEN: Lung bases: Superimposed on interstitial fibrotic change are new areas of airspace opacity involving both lung bases. Findings are suspicious for pneumonia Liver: No focal lesion. Gallbladder: Not present Pancreas: Normal. Adrenal glands: Normal. Spleen: Calcified granuloma Kidneys and ureters: Normal. No hydronephrosis. Vasculature: There are severe vascular calcifications seen involving the visualized vasculature. Lymph nodes:No lymphadenopathy. Free fluid in abdomen:No free fluid is evident. PELVIS: Small and large bowel: Normal Appendix:Not visualized Bladder: Normal. Rectal and perirectal soft tissues:Normal. Reproductive structures: Surgically absent Free fluid in pelvis: No free fluid is evident. Lymphadenopathy pelvis: No lymphadenopathy is evident. Osseous structures: No acute osseous abnormality. No destructive osteolytic or osteoblastic lesion i s identified. There is scattered degenerative and osteoarthritic changes. Soft tissues:Normal. IMPRESSION: 1. Bilateral lower lobe, right middle lobe and lingular pneumonia
[2019-01-23] MEDS ORDERED: Azithromycin 500 MG VIAL ONE (20:56)
[2019-01-23 22:39] LABS: Troponin I Less than 0.010 ng/mL (< 0.028)
[2019-01-23] MEDS ORDERED: Acetaminophen 325 MG TAB PO PRN (22:53)
[2019-01-23 23:16] LABS: Bacteria/HPF None Seen HPF (None Seen); Bilirubin Negative (Negative); Blood, Urine Trace (Negative); Clarity Clear (Clear); Glucose, Urine (Dipstick) Normal (Negative); Leukocyte Negative Leu/uL (Negative); Nitrite Negative (Negative); Protein, Urine (Dipstick) 30 mg/dL (Neg-Trace); Squamous Epithelial 0-3 HPF (0-3); Urobilinogen Normal mg/dL (Less than 2); WBC/HPF 0-3 HPF (0-3)
--- NOTE | 2019-01-23 23:28 | PDOC.EVN ---
Event Note - Event Note Event Note: [id number]
--- NOTE | 2019-01-24 00:51 | HP ---
CHIEF COMPLAINT: Not feeling well and fever. HISTORY OF PRESENT ILLNESS: Ms. An is a 78-year-old female with past medical history of coronary artery disease, stent placement, COPD, congestive heart failure, chronic renal disease, spinal stenosis, among others, presents to the emergency room with weakness and fever since last night. Workup in the emergency room including imaging studies, the patient was found to have multifocal pneumonia. Septic workup done in the ED. The patient started on IV antibiotics. PAST MEDICAL HISTORY: As mentioned above in history of present illness. PAST SURGICAL HISTORY: 1. Coronary artery bypass graft surgery. 2. Cholecystectomy. 3. section. 4. Hysterectomy. 5. Left knee surgery. 6. Defibrillator placement. FAMILY HISTORY: Reviewed and noncontributory. PAST PSYCHIATRIC HISTORY: Anxiety and depression. SOCIAL HISTORY: Denies alcohol drinking. She is a former cigarette smoker. FAMILY HISTORY: Reviewed and noncontributory. HOME MEDICATIONS: Please see home medication reconciliation form for updated medications. ALLERGIES: ADHESIVE TAPE, CODEINE, DECADRON, FENTANYL, KETOROLAC, OPANA ER, OXYMORPHONE, PENICILLIN, PREDNISONE, SOLU-MEDROL ?, SULFA, TAPE, TORADOL, TRAMADOL, TYLENOL NO. 3. REVIEW OF SYSTEMS: Review of 14 systems negative except what is mentioned in history of present illness. PHYSICAL EXAMINATION: GENERAL: The patient is awake, alert, in moderate distress. VITAL SIGNS: Blood pressure 180/63, pulse is 97, respiratory rate is 19, temperature 99.1. HEAD: Normocephalic, atraumatic. NECK: Supple. No JVD. CHEST: Coarse bilateral breath sounds, more on the right side. ABDOMEN: Soft, nontender. Bowel sounds present. NEUROLOGIC: Awake, alert, and oriented x3. PSYCHIATRIC: Normal mood. EXTREMITIES: No clubbing or cyanosis. LABORATORY DATA: CT of the abdomen showed bilateral lower lobe and right middle lobe and lingular pneumonia. BNP is normal. Troponin 0.01. Sodium is 135, BUN is 23, creatinine 1.6. WBC count is elevated at 21,000. ASSESSMENT: 1. Pneumonia, community-acquired, multifocal. 2. Chronic obstructive pulmonary disease. 3. Coronary artery disease. 4. Congestive heart failure. PLAN: 1. Admit. 2. Septic workup including blood cultures. 3. IV antibiotics. 4. Oxygen to keep saturation more than 92%. 5. Reconcile home medications. 6. DVT prophylaxis as appropriate. 7. Expected length of stay 2 midnights or more. Job ID: [id number]
[2019-01-24] MEDS ORDERED: ALPRAZolam 0.25 MG TAB PO PRN (00:55)
[2019-01-24 01:15] VITALS: BMI 32.9
[2019-01-24] MEDS ORDERED: Gabapentin 300 MG CAP PO SCH (01:15)
[2019-01-24] MEDS ORDERED: Zolpidem Tartrate 5 MG TAB PO SCH (01:15)
[2019-01-24] MEDS ORDERED: Montelukast Sodium 10 mg Tablet PO SCH (01:15)
[2019-01-24 01:21] LABS: Troponin I 0.011 ng/mL (< 0.028)
[2019-01-24] MEDS: Famotidine 20 MG TAB PO SCH (08:05)
[2019-01-24] MEDS ORDERED: Levalbuterol HCl 0.63 MG/3 ML NEB NEB PRN (08:07)
[2019-01-24] MEDS ORDERED: Furosemide 20 MG TAB PO PRN (08:07)
[2019-01-24] MEDS ORDERED: PROVENTIL INHALER 6.7 G (200 INHALATIONS) INH PRN (08:07)
[2019-01-24] MEDS ORDERED: Oxybutynin 5 MG TAB PO PRN (08:07)
[2019-01-24] MEDS ORDERED: Dextromethorphan Polistirex 30 MG/5 ML (89 ML BOTTLE) PO PRN (08:07)
[2019-01-24] MEDS ORDERED: EZETIMIBE PO SCH ×2 (08:15)
[2019-01-24] MEDS ORDERED: SIMVASTATIN PO SCH ×2 (08:15)
[2019-01-24] MEDS ORDERED: [UNRECOGNIZED DRUG - OTHER] PO SCH (08:15)
[2019-01-24] MEDS: Spironolactone 25 MG TAB PO SCH (09:24)
[2019-01-24] MEDS: Escitalopram Oxalate 20 mg Tablet PO SCH (09:24)
[2019-01-24] MEDS: Aspirin 81 mg Enteric Coated Tablet PO SCH (09:24)
[2019-01-24] MEDS: ALPRAZolam 0.25 MG TAB PO SCH ×3 (09:24→20:19)
[2019-01-24] MEDS: Clopidogrel Bisulfate 75 MG TAB PO SCH (09:26)
[2019-01-24] MEDS: guaiFENesin ER 600 MG TAB PO SCH ×2 (09:26→20:20)
[2019-01-24] MEDS: Heparin 5,000 UNITS/ML VIAL SC SCH ×3 (09:27→20:20)
[2019-01-24] MEDS: Estradiol 1 MG TAB PO SCH (09:39)
[2019-01-24] MEDS: Calcium Carbonate + Vit D 250 MG TAB PO SCH (09:39)
[2019-01-24 11:15] LABS: #Eosinphils 0.2 thou/uL (0.0-0.7); #Monocytes 1.4 thou/uL (0.11-0.59); #Neutrophils 17.1 thou/uL (1.40-6.50); %Basophils 0.1 % (0.0-1.0); %Eosinophils 0.8 % (0.0-10.0); %Lymphocytes 5.1 % (21.0-51.0); %Monocytes 7.3 % (0.0-10.0); %Neutrophils 86.7 % (42.0-75.0); Mean Corpuscular HGB CONC 31.9 g/dL (32.0-36.0); Mean Corpuscular Volume 87.9 fL (78.0-98.0); Mean Platelet Volume 7.2 fL (7.4-10.4); Platelet Count 159 thou/uL (130-400); RBC Distribution Width 12.5 % (11.5-14.5); Red Blood Cell (RBC) Count 4.65 mill/uL (4.20-5.40); White Blood Cell (WBC) Count 19.7 thou/uL (4.8-10.8)
[2019-01-24 11:40] LABS: Anion Gap 16 mmol/L (10-20); BUN (Urea Nitrogen) 19 mg/dL (9.8-20.1); Calc. Creatinine Clearance 45 mL/min (70-130); Calcium 9.3 mg/dL (7.8-10.44); Carbon Dioxide 19 mmol/L (23-31); Chloride 105 mmol/L (98-107); Estimated GFR-MDRD 40; Glucose 77 mg/dL (83-110); Potassium 4.4 mmol/L (3.5-5.1); Sodium 136 mmol/L (136-145)
[2019-01-24] MEDS: Ipratropium Oral Inhaler INH SCH ×4 (11:51→19:23)
[2019-01-24] MEDS: Mometasone/Formoterol 120 PUFF INHALER INH SCH ×2 (11:52→19:28)
--- NOTE | 2019-01-24 15:56 | PDOC.HOSPP ---
- Subjective Encounter Date: 01/24/19 Encounter Time: 10:40 Subjective: Pt seen for followup re: COPD exacerbation. c/o wheezing, cough. - Objective Vital Signs & Weight: Vital Signs (12 hours) Temp Pulse Resp BP Pulse Ox 01/24/19 15:46 98.8 F 86 20 109/72 93 L 01/24/19 14:59 85 16 01/24/19 13:21 85 18 92 L 01/24/19 12:00 98.2 F 90 22 H 118/77 97 01/24/19 11:52 90 16 01/24/19 11:51 90 16 01/24/19 08:10 93 L 01/24/19 07:52 98.7 F 90 22 H 106/70 93 L 01/24/19 04:50 98.7 F 86 16 110/70 95 Weight Weight 174 lb 6.4 oz Result Diagrams: 01/24/19 10:57 01/24/19 10:57 Additional Labs: Labs and MARs reviewed by pa Hospitalist ROS - Review of Systems Constitutional: reports: weakness. denies: fever, chills, sweats, malaise Respiratory: reports: cough, SOB with excertion, sputum, wheezing. denies: dry , shortness of breath, hemoptysis, pleuritic pain Cardiovascular: denies: chest pain, palpitations, orthopnea, paroxysmal noc. dyspnea, edema, light headedness - Medication Medications: Active Medications Generic Name Dose Route Start Last Admin Trade Name Freq PRN Reason Stop Dose Admin Acetaminophen 650 mg 01/23/19 22:53 01/24/19 14:46 Tylenol PO 650 mg Q4H PRN Administration Headache/Fever/Mild Pain (1-3) Alprazolam 0.25 mg 01/24/19 00:55 01/24/19 01:25 Xanax PO 0.25 mg Q24H PRN Administration Anxiety Alprazolam 0.25 mg 01/24/19 09:00 01/24/19 14:46 Xanax PO 0.25 mg TID ANASTASIA Administration Aspirin 81 mg 01/24/19 09:00 01/24/19 09:24 Ecotrin PO Not Given DAILY ANASTASIA Calcium/Vitamin D 250 mg 01/24/19 09:00 01/24/19 09:39 Oscal + Vit D PO 250 mg DAILY ANASTASIA Administration Clopidogrel Bisulfate 37.5 mg 01/24/19 09:00 01/24/19 09:26 Plavix PO 37.5 mg DAILY ANASTASIA Administration Escitalopram Oxalate 20 mg 01/24/19 09:00 01/24/19 09:24 Lexapro PO 20 mg DAILY ANASTASIA Administration Estradiol 0.5 mg 01/24/19 09:00 01/24/19 09:39 Estrace PO 0.5 mg DAILY ANASTASIA Administration Famotidine 20 mg 01/24/19 09:00 01/24/19 08:05 Pepcid PO 20 mg QAM ANASTASIA Administration Guaifenesin 1,200 mg 01/24/19 09:00 01/24/19 09:26 Mucinex PO 1,200 mg Q12HR ANASTASIA Administration Heparin Sodium (Porcine) 5,000 units 01/24/19 09:00 01/24/19 14:46 Heparin SC 5,000 units TID ANASTASIA Administration Ipratropium [place] 4 puff 01/24/19 09:00 01/24/19 14:59 Atrovent Hfa INH 4 puff QID ANASTASIA Administration Mometasone Furoate/Formoterol Fumar 2 puff 01/24/19 18:30 01/24/19 11:52 Dulera 200 Mcg/5 Mcg Inhaler INH 2 puff BID-RT ANASTASIA Administration Pantoprazole Sodium 40 mg 01/24/19 09:00 01/24/19 09:25 Protonix PO 40 mg DAILY ANASTASIA Administration Sodium Chloride 10 ml 01/24/19 09:00 01/24/19 08:07 Flush - Normal Saline IVF 10 ml Q12HR ANASTASIA Administration Spironolactone 25 mg 01/24/19 09:00 01/24/19 09:24 Aldactone PO 25 mg DAILY ANASTASIA Administration - Exam General - other findings: Obese Eye: anicteric sclera ENT: moist mucosa Neck: supple Heart: RRR, no rubs Respiratory: wheezes Gastrointestinal: soft, non-tender, normal bowel sounds Extremities: no cyanosis Musculoskeletal: normal tone, normal strength Psychiatric: normal affect, normal behavior Hosp A/P (1) COPD exacerbation Code(s): J44.1 - CHRONIC OBSTRUCTIVE PULMONARY DISEASE W (ACUTE) EXACERBATION Status: Acute (2) CAD (coronary artery disease) Code(s): I25.10 - ATHSCL HEART DISEASE OF [place] CORONARY ARTERY W/O ANG PCTRS Status: Chronic Qualifiers: Coronary Disease-Associated Artery/Lesion type: [place] artery [place] vs. transplanted heart: [place] heart Associated angina: without angina Qualified Code(s): I25.10 - Atherosclerotic heart disease of [place] coronary artery without angina pectoris (3) CKD (chronic kidney disease), stage III Status: Chronic (4) HTN (hypertension) Code(s): I10 - ESSENTIAL (PRIMARY) HYPERTENSION Status: Chronic Qualifiers: Hypertension type: essential hypertension Qualified Code(s): I10 - Essential (primary) hypertension (5) Pneumonia Code(s): J18.9 - PNEUMONIA, UNSPECIFIED ORGANISM Status: Acute (6) Sepsis Code(s): A41.9 - SEPSIS, UNSPECIFIED ORGANISM Status: Acute - Plan continue antibiotics, out of bed/ambulate Pt cannot tolerate nebulizers or ssteroids. Continue oxygen, antibiotics and bronchodilator inhalers. HTN controlled. CAD stable.
[2019-01-24] MEDS: cefTRIAXone\\ROCEPHIN 1 GM in Sodium Chloride 0.9% 100 ML IVPB SCH (20:18)
[2019-01-24] MEDS: Zolpidem Tartrate 5 MG TAB PO SCH (20:19)
[2019-01-24] MEDS: Gabapentin 300 MG CAP PO SCH (20:20)
[2019-01-24] MEDS: Atorvastatin Calcium 10 MG TAB PO SCH (20:20)
[2019-01-24] MEDS: Montelukast Sodium 10 mg Tablet PO SCH ×2 (20:21→22:04)
[2019-01-24] MEDS ORDERED: Prevnar 13-Val Conj/PF 0.5 ML SYRINGE IM ONE (21:00)
[2019-01-24] MEDS: HYDROcodone/Acetaminophen 10/325 mg Tablet PO PRN (21:07)
[2019-01-24] MEDS ORDERED: Potassium Chloride 20 MEQ TAB PO SCH (21:45)
[2019-01-24] MEDS: Azithromycin 500 MG in Sodium Chloride 0.9% 250 ML 250 ML IVPB SCH (22:08)
[2019-01-25] MEDS: Ipratropium Oral Inhaler INH SCH ×5 (07:17→20:05)
[2019-01-25] MEDS: Mometasone/Formoterol 120 PUFF INHALER INH SCH ×2 (07:18→20:05)
[2019-01-25] MEDS: Aspirin 81 mg Enteric Coated Tablet PO SCH (08:58)
[2019-01-25] MEDS: Estradiol 1 MG TAB PO SCH (08:59)
[2019-01-25] MEDS: Heparin 5,000 UNITS/ML VIAL SC SCH ×3 (08:59→20:42)
[2019-01-25] MEDS: Calcium Carbonate + Vit D 250 MG TAB PO SCH (09:00)
[2019-01-25] MEDS: Gabapentin 300 MG CAP PO SCH ×3 (09:00→22:18)
[2019-01-25] MEDS: Escitalopram Oxalate 20 mg Tablet PO SCH (09:01)
[2019-01-25] MEDS: Clopidogrel Bisulfate 75 MG TAB PO SCH (09:01)
[2019-01-25] MEDS: Famotidine 20 MG TAB PO SCH (09:02)
[2019-01-25] MEDS: Ezetimibe 10 MG TAB PO SCH (09:02)
[2019-01-25] MEDS: ALPRAZolam 0.25 MG TAB PO SCH ×3 (09:03→22:18)
[2019-01-25] MEDS: Spironolactone 25 MG TAB PO SCH (09:03)
[2019-01-25] MEDS: guaiFENesin ER 600 MG TAB PO SCH ×2 (09:20→21:10)
--- NOTE | 2019-01-25 17:56 | PDOC.HOSPP ---
- Subjective Encounter Date: 01/25/19 Encounter Time: 11:20 Subjective: Pt seen for followup re: pneumonia. Feels slightly better. - Objective Vital Signs & Weight: Vital Signs (12 hours) Temp Pulse Resp BP BP Pulse Ox 01/25/19 12:55 97.7 F 76 16 139/83 95 01/25/19 08:30 95 01/25/19 08:19 97.8 F 76 20 138/82 95 Weight Weight 174 lb 6.4 oz I&O: 01/24/19 01/25/19 01/26/19 06:59 06:59 06:59 Intake Total 810 1000 Balance 810 1000 Result Diagrams: 01/24/19 10:57 01/24/19 10:57 Additional Labs: Labs and MARs reviewed by id Hospitalist ROS - Review of Systems Respiratory: reports: cough, SOB with excertion, sputum, wheezing. denies: dry , shortness of breath, hemoptysis, pleuritic pain Cardiovascular: denies: chest pain, palpitations, orthopnea, paroxysmal noc. dyspnea, edema, light headedness - Medication Medications: Active Medications Generic Name Dose Route Start Last Admin Trade Name Freq PRN Reason Stop Dose Admin Acetaminophen 650 mg 01/23/19 22:53 01/24/19 14:46 Tylenol PO 650 mg Q4H PRN Administration Headache/Fever/Mild Pain (1-3) Hydrocodone Bitart/Acetaminophen 1 tab 01/24/19 08:07 01/24/19 21:07 [place] 10/325 PO 1 tab Q4HR PRN Administration Moderate Pain (4-7) Alprazolam 0.25 mg 01/24/19 00:55 01/24/19 01:25 Xanax PO 0.25 mg Q24H PRN Administration Anxiety Alprazolam 0.25 mg 01/24/19 09:00 01/25/19 14:32 Xanax PO 0.25 mg TID ANASTASIA Administration Aspirin 81 mg 01/24/19 09:00 01/25/19 08:58 Ecotrin PO Not Given DAILY ANASTASIA Atorvastatin Calcium 10 mg 01/24/19 21:00 01/24/19 20:20 Lipitor PO 10 mg HS ANASTASIA Administration Calcium/Vitamin D 250 mg 01/24/19 09:00 01/25/19 09:00 Oscal + Vit D PO 250 mg DAILY ANASTASIA Administration Clopidogrel Bisulfate 37.5 mg 01/24/19 09:00 01/25/19 09:01 Plavix PO 37.5 mg DAILY ANASTASIA Administration Dextromethorphan Polistirix 60 mg 01/24/19 08:07 01/24/19 16:25 Delsym PO 60 mg Q4H PRN Administration Cough Ezetimibe 10 mg 01/25/19 09:00 01/25/19 09:02 Zetia PO 10 mg DAILY ANASTASIA Administration Escitalopram Oxalate 20 mg 01/24/19 09:00 01/25/19 09:01 Lexapro PO 20 mg DAILY ANASTASIA Administration Estradiol 0.5 mg 01/24/19 09:00 01/25/19 08:59 Estrace PO 0.5 mg DAILY ANASTASIA Administration Famotidine 20 mg 01/24/19 09:00 01/25/19 09:02 Pepcid PO 20 mg QAM ANASTASIA Administration Gabapentin 600 mg 01/25/19 09:00 01/25/19 09:05 Neurontin PO Not Given DAILY ANASTASIA Gabapentin 600 mg 01/24/19 21:00 01/24/19 20:20 Neurontin PO 600 mg HS ANASTASIA Administration Guaifenesin 1,200 mg 01/24/19 09:00 01/25/19 09:20 Mucinex PO 1,200 mg Q12HR ANASTASIA Administration Heparin Sodium (Porcine) 5,000 units 01/24/19 09:00 01/25/19 14:32 Heparin SC Not Given TID ANASTASIA Azithromycin 500 mg/ Sodium 250 mls @ 250 mls/hr 01/24/19 22:00 01/24/19 22: 08 Chloride IVPB 250 mls Q24HR ANASTASIA Administration Ceftriaxone Sodium 1 gm/ 100 mls @ 200 mls/hr 01/24/19 20:00 01/24/19 20:18 Sodium Chloride IVPB 100 mls Q24HR ANASTASIA Administration Ipratropium [place] 4 puff 01/25/19 11:00 01/25/19 14:21 Atrovent Hfa INH 4 puff QID-RT ANASTASIA Administration Mometasone Furoate/Formoterol Fumar 2 puff 01/24/19 18:30 01/25/19 07:18 Dulera 200 Mcg/5 Mcg Inhaler INH 2 puff BID-RT ANASTASIA Administration Montelukast Sodium 10 mg 01/24/19 21:00 12/15/19 22:04 Singulair PO Not Given QPM ANASATSIA Montelukast Sodium 10 mg 01/24/19 21:00 01/24/19 20:21 Singulair PO 10 mg HS ANASTASIA Administration Pantoprazole Sodium 40 mg 01/24/19 09:00 01/25/19 09:03 Protonix PO 40 mg DAILY ANASTASIA Administration Sodium Chloride 10 ml 01/24/19 09:00 01/25/19 09:21 Flush - Normal Saline IVF 10 ml Q12HR ANASTASIA Administration Spironolactone 25 mg 01/24/19 09:00 01/25/19 09:03 Aldactone PO 25 mg DAILY ANASTASIA Administration Zolpidem Tartrate 5 mg 01/24/19 21:00 01/24/19 20:19 Ambien PO 5 mg HS ANASTASIA Administration - Exam General - other findings: Obese Eye: anicteric sclera ENT: no oropharyngeal lesions, moist mucosa Neck: supple, symmetric Heart: RRR, no rubs Respiratory: wheezes Gastrointestinal: soft, non-tender Skin: no rashes Musculoskeletal: no muscle wasting Psychiatric: normal affect, normal behavior Hosp A/P (1) Pneumonia Code(s): J18.9 - PNEUMONIA, UNSPECIFIED ORGANISM Status: Acute (2) COPD exacerbation Code(s): J44.1 - CHRONIC OBSTRUCTIVE PULMONARY DISEASE W (ACUTE) EXACERBATION Status: Acute (3) CAD (coronary artery disease) Code(s): I25.10 - ATHSCL HEART DISEASE OF [place] CORONARY ARTERY W/O ANG PCTRS Status: Chronic Qualifiers: Coronary Disease-Associated Artery/Lesion type: [place] artery [place] vs. transplanted heart: [place] heart Associated angina: without angina Qualified Code(s): I25.10 - Atherosclerotic heart disease of [place] coronary artery without angina pectoris (4) CKD (chronic kidney disease), stage III Status: Chronic (5) HTN (hypertension) Code(s): I10 - ESSENTIAL (PRIMARY) HYPERTENSION Status: Chronic Qualifiers: Hypertension type: essential hypertension Qualified Code(s): I10 - Essential (primary) hypertension (6) Sepsis Code(s): A41.9 - SEPSIS, UNSPECIFIED ORGANISM Status: Resolved Plan: present on admission - Plan continue antibiotics, out of bed/ambulate Pt cannot tolerate nebulizers or ssteroids. Therefore she is on bronchodilator inhalers. Continue oxygen, ceftriazone and azithromycin. HTN controlled. CAD stable. Creatinine improved to 1.28 today.
[2019-01-25] MEDS: Montelukast Sodium 10 mg Tablet PO SCH ×2 (20:37)
[2019-01-25] MEDS: Atorvastatin Calcium 10 MG TAB PO SCH (20:38)
[2019-01-25] MEDS: HYDROcodone/Acetaminophen 10/325 mg Tablet PO PRN (20:39)
[2019-01-25] MEDS: cefTRIAXone\\ROCEPHIN 1 GM in Sodium Chloride 0.9% 100 ML IVPB SCH (21:02)
[2019-01-25] MEDS: Zolpidem Tartrate 5 MG TAB PO SCH (22:19)
[2019-01-25] MEDS: Azithromycin 500 MG in Sodium Chloride 0.9% 250 ML 250 ML IVPB SCH (23:00)
[2019-01-26] MEDS: Mometasone/Formoterol 120 PUFF INHALER INH SCH ×2 (07:24→20:58)
[2019-01-26] MEDS: Ipratropium Oral Inhaler INH SCH ×4 (07:25→20:52)
[2019-01-26] MEDS: Clopidogrel Bisulfate 75 MG TAB PO SCH (08:39)
[2019-01-26] MEDS: Ezetimibe 10 MG TAB PO SCH (08:39)
[2019-01-26] MEDS: Estradiol 1 MG TAB PO SCH (08:39)
[2019-01-26] MEDS: Escitalopram Oxalate 20 mg Tablet PO SCH (08:39)
[2019-01-26] MEDS: Famotidine 20 MG TAB PO SCH (08:40)
[2019-01-26] MEDS: guaiFENesin ER 600 MG TAB PO SCH ×2 (08:40→20:13)
[2019-01-26] MEDS: ALPRAZolam 0.25 MG TAB PO SCH ×3 (08:40→20:17)
[2019-01-26] MEDS: Calcium Carbonate + Vit D 250 MG TAB PO SCH (08:40)
[2019-01-26] MEDS: Spironolactone 25 MG TAB PO SCH (08:40)
[2019-01-26] MEDS: Aspirin 81 mg Enteric Coated Tablet PO SCH (08:44)
[2019-01-26] MEDS: Heparin 5,000 UNITS/ML VIAL SC SCH ×3 (08:45→20:14)
[2019-01-26] MEDS: Gabapentin 300 MG CAP PO SCH ×2 (08:45→20:13)
[2019-01-26 10:15] LABS: #Eosinphils 0.3 thou/uL (0.0-0.7); #Lymphocytes 1.2 thou/uL (1.20-3.40); #Monocytes 0.6 thou/uL (0.11-0.59); #Neutrophils 5.2 thou/uL (1.40-6.50); %Basophils 0.2 % (0.0-1.0); %Eosinophils 4.6 % (0.0-10.0); %Lymphocytes 15.8 % (21.0-51.0); %Monocytes 8.2 % (0.0-10.0); %Neutrophils 71.2 % (42.0-75.0); Hemoglobin 12.7 g/dL (12.0-16.0); Mean Corpuscular HGB CONC 33.4 g/dL (32.0-36.0); Mean Corpuscular Hemoglobin 29.1 pg (27.0-31.0); Mean Corpuscular Volume 87.1 fL (78.0-98.0); Mean Platelet Volume 6.5 fL (7.4-10.4); Platelet Count 193 thou/uL (130-400); RBC Distribution Width 12.3 % (11.5-14.5); Red Blood Cell (RBC) Count 4.35 mill/uL (4.20-5.40); White Blood Cell (WBC) Count 7.3 thou/uL (4.8-10.8)
[2019-01-26 10:34] LABS: Anion Gap 13 mmol/L (10-20); BUN (Urea Nitrogen) 12 mg/dL (9.8-20.1); Calc. Creatinine Clearance 46 mL/min (70-130); Carbon Dioxide 27 mmol/L (23-31); Chloride 105 mmol/L (98-107); Estimated GFR-MDRD 41; Glucose 88 mg/dL (83-110); Potassium 4.6 mmol/L (3.5-5.1); Sodium 140 mmol/L (136-145)
[2019-01-26] MEDS: HYDROcodone/Acetaminophen 10/325 mg Tablet PO PRN (13:29)
--- NOTE | 2019-01-26 18:45 | PDOC.HOSPP ---
- Subjective Encounter Date: 01/26/19 Encounter Time: 11:20 Subjective: Pt seen for followup re: pneumonia. Feels better. not ambulating much. - Objective Vital Signs & Weight: Vital Signs (12 hours) Temp Pulse Resp BP Pulse Ox 01/26/19 08:20 93 L 01/26/19 08:00 97.6 F 70 18 128/81 93 L 01/26/19 07:24 71 18 94 L Weight Weight 174 lb 6.4 oz I&O: 01/25/19 01/26/19 01/27/19 06:59 06:59 06:59 Intake Total 810 1000 Balance 810 1000 Result Diagrams: 01/26/19 10:07 01/26/19 10:07 Additional Labs: Labs and MARs reviewed by pa Hospitalist ROS - Review of Systems Respiratory: reports: cough, SOB with excertion, sputum, wheezing. denies: dry , shortness of breath, hemoptysis, pleuritic pain Genitourinary: denies: dysuria, frequency, incontinence, hematuria, retention - Medication Medications: Active Medications Generic Name Dose Route Start Last Admin Trade Name Freq PRN Reason Stop Dose Admin Acetaminophen 650 mg 01/23/19 22:53 01/24/19 14:46 Tylenol PO 650 mg Q4H PRN Administration Headache/Fever/Mild Pain (1-3) Hydrocodone Bitart/Acetaminophen 1 tab 01/24/19 08:07 01/26/19 13:29 [place] 10/325 PO 1 tab Q4HR PRN Administration Moderate Pain (4-7) Alprazolam 0.25 mg 01/24/19 00:55 01/24/19 01:25 Xanax PO 0.25 mg Q24H PRN Administration Anxiety Alprazolam 0.25 mg 01/24/19 09:00 01/26/19 15:24 Xanax PO Not Given TID ANASTASIA Aspirin 81 mg 01/24/19 09:00 01/26/19 08:44 Ecotrin PO Not Given DAILY ANASTASIA Atorvastatin Calcium 10 mg 01/24/19 21:00 01/25/19 20:38 Lipitor PO 10 mg HS ANASTASIA Administration Calcium/Vitamin D 250 mg 01/24/19 09:00 01/26/19 08:40 Oscal + Vit D PO 250 mg DAILY ANASTASIA Administration Clopidogrel Bisulfate 37.5 mg 01/24/19 09:00 01/26/19 08:39 Plavix PO 37.5 mg DAILY ANASTASIA Administration Dextromethorphan Polistirix 60 mg 01/24/19 08:07 01/24/19 16:25 Delsym PO 60 mg Q4H PRN Administration Cough Ezetimibe 10 mg 01/25/19 09:00 01/26/19 08:39 Zetia PO 10 mg DAILY ANASTASIA Administration Escitalopram Oxalate 20 mg 01/24/19 09:00 01/26/19 08:39 Lexapro PO 20 mg DAILY ANASTASIA Administration Estradiol 0.5 mg 01/24/19 09:00 01/26/19 08:39 Estrace PO 0.5 mg DAILY ANASTASIA Administration Famotidine 20 mg 01/24/19 09:00 01/26/19 08:40 Pepcid PO 20 mg QAM ANASTASIA Administration Gabapentin 600 mg 01/24/19 21:00 01/25/19 22:18 Neurontin PO 600 mg HS ANASTASIA Administration Guaifenesin 1,200 mg 01/24/19 09:00 01/26/19 08:40 Mucinex PO 1,200 mg Q12HR ANASTASIA Administration Heparin Sodium (Porcine) 5,000 units 01/24/19 09:00 01/26/19 15:24 Heparin SC Not Given TID ANASTASIA Azithromycin 500 mg/ Sodium 250 mls @ 250 mls/hr 01/24/19 22:00 01/25/19 23: 00 Chloride IVPB 250 mls Q24HR ANASTASIA Administration Ceftriaxone Sodium 1 gm/ 100 mls @ 200 mls/hr 01/24/19 20:00 01/25/19 21:02 Sodium Chloride IVPB 100 mls Q24HR ANASTASIA Administration Ipratropium [place] 4 puff 01/25/19 11:00 01/26/19 15:29 Atrovent Hfa INH 4 puff QID-RT ANASTASIA Administration Mometasone Furoate/Formoterol Fumar 2 puff 01/24/19 18:30 01/26/19 07:24 Dulera 200 Mcg/5 Mcg Inhaler INH 2 puff BID-RT ANASTASIA Administration Montelukast Sodium 10 mg 01/24/19 21:00 01/25/19 20:37 Singulair PO Not Given QPM ANASTASIA Montelukast Sodium 10 mg 01/24/19 21:00 01/25/19 20:37 Singulair PO 10 mg HS ANASTASIA Administration Pantoprazole Sodium 40 mg 01/24/19 09:00 01/26/19 08:39 Protonix PO 40 mg DAILY ANASTASIA Administration Sodium Chloride 10 ml 01/24/19 09:00 01/26/19 08:45 Flush - Normal Saline IVF 10 ml Q12HR ANASTASIA Administration Spironolactone 25 mg 01/24/19 09:00 01/26/19 08:40 Aldactone PO 25 mg DAILY ANASTASIA Administration Zolpidem Tartrate 5 mg 01/24/19 21:00 01/25/19 22:19 Ambien PO 5 mg HS ANASTASIA Administration - Exam General - other findings: Obese Eye: anicteric sclera ENT: no oropharyngeal lesions, moist mucosa Neck: supple Heart: RRR Respiratory: wheezes Gastrointestinal: soft, non-tender Skin: no rashes Musculoskeletal: no muscle wasting Psychiatric: normal affect Hosp A/P (1) Pneumonia Code(s): J18.9 - PNEUMONIA, UNSPECIFIED ORGANISM Status: Acute (2) COPD exacerbation Code(s): J44.1 - CHRONIC OBSTRUCTIVE PULMONARY DISEASE W (ACUTE) EXACERBATION Status: Acute (3) CAD (coronary artery disease) Code(s): I25.10 - ATHSCL HEART DISEASE OF [place] CORONARY ARTERY W/O ANG PCTRS Status: Chronic Qualifiers: Coronary Disease-Associated Artery/Lesion type: [place] artery [place] vs. transplanted heart: [place] heart Associated angina: without angina Qualified Code(s): I25.10 - Atherosclerotic heart disease of [place] coronary artery without angina pectoris (4) CKD (chronic kidney disease), stage III Status: Chronic (5) HTN (hypertension) Code(s): I10 - ESSENTIAL (PRIMARY) HYPERTENSION Status: Chronic Qualifiers: Hypertension type: essential hypertension Qualified Code(s): I10 - Essential (primary) hypertension (6) Sepsis Code(s): A41.9 - SEPSIS, UNSPECIFIED ORGANISM Status: Resolved - Plan continue antibiotics, out of bed/ambulate Walking program. Continue oxygen, ceftriazone and azithromycin. HTN controlled. CAD stable. Creatinine improved to 1.26 today. Ambulate pt.
[2019-01-26] MEDS: Montelukast Sodium 10 mg Tablet PO SCH ×2 (20:12→20:13)
[2019-01-26] MEDS: cefTRIAXone\\ROCEPHIN 1 GM in Sodium Chloride 0.9% 100 ML IVPB SCH (20:15)
[2019-01-26] MEDS: Zolpidem Tartrate 5 MG TAB PO SCH (20:18)
[2019-01-26] MEDS: Atorvastatin Calcium 10 MG TAB PO SCH (20:24)
[2019-01-26] MEDS: Azithromycin 500 MG in Sodium Chloride 0.9% 250 ML 250 ML IVPB SCH (21:53)
[2019-01-27 05:14] LABS: #Eosinphils 0.3 thou/uL (0.0-0.7); #Lymphocytes 1.5 thou/uL (1.20-3.40); #Monocytes 0.7 thou/uL (0.11-0.59); #Neutrophils 5.5 thou/uL (1.40-6.50); %Basophils 0.3 % (0.0-1.0); %Eosinophils 3.5 % (0.0-10.0); %Lymphocytes 18.6 % (21.0-51.0); %Monocytes 8.3 % (0.0-10.0); %Neutrophils 69.3 % (42.0-75.0); Hemoglobin 12.7 g/dL (12.0-16.0); Mean Corpuscular HGB CONC 32.6 g/dL (32.0-36.0); Mean Corpuscular Hemoglobin 28.4 pg (27.0-31.0); Mean Corpuscular Volume 87.2 fL (78.0-98.0); Mean Platelet Volume 6.6 fL (7.4-10.4); Platelet Count 215 thou/uL (130-400); RBC Distribution Width 12.2 % (11.5-14.5); Red Blood Cell (RBC) Count 4.46 mill/uL (4.20-5.40); White Blood Cell (WBC) Count 7.9 thou/uL (4.8-10.8)
[2019-01-27 05:32] LABS: Anion Gap 11 mmol/L (10-20); BUN (Urea Nitrogen) 14 mg/dL (9.8-20.1); Calc. Creatinine Clearance 42 mL/min (70-130); Calcium 9.2 mg/dL (7.8-10.44); Carbon Dioxide 30 mmol/L (23-31); Chloride 103 mmol/L (98-107); Estimated GFR-MDRD 37; Glucose 83 mg/dL (83-110); Potassium 4.7 mmol/L (3.5-5.1); Sodium 139 mmol/L (136-145)
[2019-01-27] MEDS: Mometasone/Formoterol 120 PUFF INHALER INH SCH ×2 (08:41→19:25)
[2019-01-27] MEDS: Ipratropium Oral Inhaler INH SCH ×4 (08:42→19:28)
[2019-01-27] MEDS: Estradiol 1 MG TAB PO SCH (08:44)
[2019-01-27] MEDS: Clopidogrel Bisulfate 75 MG TAB PO SCH (08:45)
[2019-01-27] MEDS: Ezetimibe 10 MG TAB PO SCH (08:45)
[2019-01-27] MEDS: Famotidine 20 MG TAB PO SCH (08:45)
[2019-01-27] MEDS: guaiFENesin ER 600 MG TAB PO SCH ×2 (08:46→21:16)
[2019-01-27] MEDS: ALPRAZolam 0.25 MG TAB PO SCH ×3 (08:46→21:15)
[2019-01-27] MEDS: Calcium Carbonate + Vit D 250 MG TAB PO SCH (08:46)
[2019-01-27] MEDS: Spironolactone 25 MG TAB PO SCH (08:47)
[2019-01-27] MEDS: Aspirin 81 mg Enteric Coated Tablet PO SCH (08:47)
[2019-01-27] MEDS: Escitalopram Oxalate 20 mg Tablet PO SCH (08:47)
[2019-01-27] MEDS: Heparin 5,000 UNITS/ML VIAL SC SCH ×3 (08:48→19:17)
[2019-01-27] MEDS: HYDROcodone/Acetaminophen 10/325 mg Tablet PO PRN (13:03)
--- NOTE | 2019-01-27 13:31 | PQF ---
MYRON WATSON GREGOR [id number] CLINICAL DOCUMENTATION IMPROVEMENT CLARIFICATION FORM: ICD-10 Updated PLEASE DO AN ADDENDUM TO THE PROGRESS NOTE WITH ANY DOCUMENTATION UPDATES OR ADDITIONS AND CARRY THROUGH TO DC SUMMARY. THANK YOU. DATE: 01/27/19 ATTN: Dr. June Please exercise your independent, professional judgment in responding to the clarification form. Clinical indicators are provided on the bottom of this form for your review Please check appropriate box(s): [ ] Severe sepsis with acute organ dysfunction of acute respiratory failure with hypoxia [ ] Acute Respiratory Failure: [ ] with Hypoxia [ ] Acute Respiratory Failure due to: (etiology) [ ] Respiratory Insufficiency [ ] Hypoxia [ ] Other diagnosis [ ] Unable to determine In addition, please specify: Present on Admission (POA): [ ] Yes [ ] No [ ] Unable to determine For continuity of documentation, please document condition throughout progress notes and discharge summary. Thank You. CLINICAL INDICATORS - SIGNS / SYMPTOMS / LABS / RESULTS AND LOCATION IN 01/23 CXR: bibasilar pneumonia. small bilateral pleural effusions. 01/24 H&P([facility]): "moderate distress"; "coarse breath sounds" 01/23 RR up to 24; 85% on RA per VS in ED note "Dyspnea" per ED note([facility]) 01/23 01/23 lab: wbc 21.0 RISK FACTORS / RESULTS AND LOCATION IN 01/24 [facility] "Multifocal pneumonia,community-acquired" 01/24 [place]: "Sepsis POA" TREATMENTS / RESULTS AND LOCATION IN Oxygen--> 01/24 1.5 NC; 01/25 2L NC per orders Monitoring of oxygenation status 01/23 orders Atrovent 4 pulff inhaler QID 01/25-date per orders Antibiotics IV--> azithromycin 500 mg IV 01/23-01/26 ; rocephin 2gm IV 01/23 to Rocephin 1gm IV 01/24-01/26 per orders Dexamethasone 10mg IV once 01/23 per orders Acute Respiratory Failure: ABG pH < 7.35 or > 7.45; Decreased oxygen saturation (<90% room air or < 95% on oxygen); PCO2 > 50 mm Hg; PO2 < 60 mm Hg; Labored or rapid respirations ARDS: Dx Criteria [[place] ARDS]: Respiratory symptoms within one week of a known clinical insult (e.g. shock, infection, surgery, trauma) Bilateral opacities in CXR/Chest CT not due to CHF or fluid (This form is maintained as a part of the permanent medical record) 2014 [employer]. All Rights Reserved Alondra Judd RN, BSN, CCDS [email or web address]
--- NOTE | 2019-01-27 13:38 | PQF ---
MYRON WATSONGREGOR [id number] CLINICAL DOCUMENTATION IMPROVEMENT CLARIFICATION FORM: ICD-10 Updated PLEASE DO AN ADDENDUM TO THE PROGRESS NOTE WITH ANY DOCUMENTATION UPDATES OR ADDITIONS AND CARRY THROUGH TO DC SUMMARY. THANK YOU. DATE: 01/27/19 ATTN: Dr. June Please exercise your independent, professional judgment in responding to the clarification form. Clinical indicators are provided on the bottom of this form for your review Please check appropriate box(s): [ ] Acute Renal Failure (ARF) / Acute Kidney Injury (AARON) [ ] Acute on Chronic Renal Failure please specify Stage of CKD (see below) [ ] CKD without ARF/AARON please specify Stage of CKD [ ] Other diagnosis [ ] Unable to determine In addition, please specify: Present on Admission (POA): [ ] Yes [ ] No [ ] Unable to determine National Kidney Foundation Guidelines for CKD Staging Stage I Kidney damage with normal or increased GFR > 90 Stage II Kidney damage with mildly decreased GFR 60-89 Stage III Kidney damage with moderately decreased GFR 30-59 Stage IV Kidney damage with severely decreased GFR 16-29 Stage V Kidney failure GFR<15 ESRD End Stage Renal DiseaseOn dialysis Acute Renal Failure/Acute Kidney Failure defined as: Increases in SCr by (>) 0.3 mg/dl within 48 hours OR- Increases in SCr by (>) 1.5 times baseline, known or presumed to have occurred within the prior 7 days OR- Urine volume < 0.5 ml/kg/hour for 6 hours (KDIGO supplement 2012 for RIFLE/EVA criteria) For continuity of documentation, please document condition throughout progress notes and discharge summary. Thank You. CLINICAL INDICATORS - SIGNS / SYMPTOMS / LABS / RESULTS AND LOCATION IN MR 01/23 bun 23, creat 1.60, GFR 31; 01/24 bun 19, creat 1.28, GFR 40; 01/26 bun 12, creat 1.26,GFR 41 per labs RISK FACTORS / RESULTS AND LOCATION IN MR 12.15(June): "HTN, CKD 3"; "Sepsis" TREATMENTS / RESULTS AND LOCATION IN MR IV fluid challenge result--> 1L NS 01/23 per orders daily BMP 01/23 to date per orders (This form is maintained as a part of the permanent medical record) 2014 [employer]. All Rights Reserved Alondra Judd RN, BSN, CCDS [email or web address]
--- NOTE | 2019-01-27 17:02 | PDOC.HOSPP ---
- Subjective Encounter Date: 01/27/19 Encounter Time: 17:01 Subjective: Pt seen for followup re: pneumonia. Feels better. No fevers or chills. - Objective Vital Signs & Weight: Vital Signs (12 hours) Temp Pulse Resp BP Pulse Ox 01/27/19 14:34 78 16 98 01/27/19 11:18 73 16 100 01/27/19 08:43 92 L 01/27/19 08:42 74 16 95 01/27/19 08:41 74 16 95 01/27/19 07:46 97.6 F 70 20 131/81 92 L Weight Weight 174 lb 6.4 oz I&O: 01/26/19 01/27/19 01/28/19 06:59 06:59 06:59 Intake Total 1000 Balance 1000 Result Diagrams: 01/27/19 04:48 01/27/19 04:48 Additional Labs: Labs and MARs reviewed by ia Hospitalist ROS - Review of Systems Constitutional: denies: fever, chills, sweats, weakness, malaise Respiratory: reports: cough, SOB with excertion, sputum. denies: dry, shortness of breath, hemoptysis, pleuritic pain, wheezing Gastrointestinal: denies: nausea, vomiting, abdominal pain, diarrhea, constipation, melena, hematochezia - Medication Medications: Active Medications Generic Name Dose Route Start Last Admin Trade Name Freq PRN Reason Stop Dose Admin Acetaminophen 650 mg 01/23/19 22:53 01/24/19 14:46 Tylenol PO 650 mg Q4H PRN Administration Headache/Fever/Mild Pain (1-3) Hydrocodone Bitart/Acetaminophen 1 tab 01/24/19 08:07 01/27/19 13:03 [place] 10/325 PO 1 tab Q4HR PRN Administration Moderate Pain (4-7) Alprazolam 0.25 mg 01/24/19 00:55 01/24/19 01:25 Xanax PO 0.25 mg Q24H PRN Administration Anxiety Alprazolam 0.25 mg 01/24/19 09:00 01/27/19 14:26 Xanax PO Not Given TID ANASTASIA Aspirin 81 mg 01/24/19 09:00 01/27/19 08:47 Ecotrin PO Not Given DAILY ANASTASIA Atorvastatin Calcium 10 mg 01/24/19 21:00 01/26/19 20:24 Lipitor PO Not Given HS ANASTASIA Calcium/Vitamin D 250 mg 01/24/19 09:00 01/27/19 08:46 Oscal + Vit D PO 250 mg DAILY ANASTASIA Administration Clopidogrel Bisulfate 37.5 mg 01/24/19 09:00 01/27/19 08:45 Plavix PO 37.5 mg DAILY ANASTASIA Administration Dextromethorphan Polistirix 60 mg 01/24/19 08:07 01/24/19 16:25 Delsym PO 60 mg Q4H PRN Administration Cough Ezetimibe 10 mg 01/25/19 09:00 01/27/19 08:45 Zetia PO 10 mg DAILY ANASTASIA Administration Escitalopram Oxalate 20 mg 01/24/19 09:00 01/27/19 08:47 Lexapro PO 20 mg DAILY ANASTASIA Administration Estradiol 0.5 mg 01/24/19 09:00 01/27/19 08:44 Estrace PO 0.5 mg DAILY ANASTASIA Administration Famotidine 20 mg 01/24/19 09:00 01/27/19 08:45 Pepcid PO 20 mg QAM ANASTASIA Administration Gabapentin 600 mg 01/24/19 21:00 01/26/19 20:13 Neurontin PO 600 mg HS ANASTASIA Administration Guaifenesin 1,200 mg 01/24/19 09:00 01/27/19 08:46 Mucinex PO 1,200 mg Q12HR ANASTASIA Administration Heparin Sodium (Porcine) 5,000 units 01/24/19 09:00 01/27/19 14:27 Heparin SC Not Given TID ANASTASIA Ipratropium [place] 4 puff 01/25/19 11:00 01/27/19 14:34 Atrovent Hfa INH 4 puff QID-RT ANASTASIA Administration Levofloxacin 750 mg 01/27/19 14:00 01/27/19 14:26 Levaquin PO 750 mg Q48H ANASTASIA Administration Mometasone Furoate/Formoterol Fumar 2 puff 01/24/19 18:30 01/27/19 08:41 Dulera 200 Mcg/5 Mcg Inhaler INH 2 puff BID-RT ANASTASIA Administration Montelukast Sodium 10 mg 01/24/19 21:00 01/26/19 20:12 Singulair PO Not Given QPM ANASTASIA Montelukast Sodium 10 mg 01/24/19 21:00 01/26/19 20:13 Singulair PO 10 mg HS ANASTASIA Administration Pantoprazole Sodium 40 mg 01/24/19 09:00 01/27/19 08:46 Protonix PO 40 mg DAILY ANASTASIA Administration Sodium Chloride 10 ml 01/24/19 09:00 01/27/19 08:47 Flush - Normal Saline IVF 10 ml Q12HR ANASTASIA Administration Spironolactone 25 mg 01/24/19 09:00 01/27/19 08:47 Aldactone PO 25 mg DAILY ANASTASIA Administration Zolpidem Tartrate 5 mg 01/24/19 21:00 01/26/19 20:18 Ambien PO 5 mg HS ANASTASIA Administration - Exam General - other findings: Obese Eye: anicteric sclera ENT: moist mucosa Neck: supple, no JVD Heart: RRR Respiratory: CTAB Gastrointestinal: soft, non-tender Musculoskeletal: no muscle wasting Psychiatric: normal affect, normal behavior Hosp A/P (1) Pneumonia Code(s): J18.9 - PNEUMONIA, UNSPECIFIED ORGANISM Status: Acute (2) COPD exacerbation Code(s): J44.1 - CHRONIC OBSTRUCTIVE PULMONARY DISEASE W (ACUTE) EXACERBATION Status: Acute (3) Acute renal failure superimposed on stage 3 chronic kidney disease Code(s): N17.9 - ACUTE KIDNEY FAILURE, UNSPECIFIED; N18.3 - CHRONIC KIDNEY DISEASE, STAGE 3 (MODERATE) Status: Acute Plan: Present on admission (4) CAD (coronary artery disease) Code(s): I25.10 - ATHSCL HEART DISEASE OF [place] CORONARY ARTERY W/O ANG PCTRS Status: Chronic Qualifiers: Coronary Disease-Associated Artery/Lesion type: [place] artery [place] vs. transplanted heart: [place] heart Associated angina: without angina Qualified Code(s): I25.10 - Atherosclerotic heart disease of [place] coronary artery without angina pectoris (5) CKD (chronic kidney disease), stage III Status: Chronic (6) HTN (hypertension) Code(s): I10 - ESSENTIAL (PRIMARY) HYPERTENSION Status: Chronic Qualifiers: Hypertension type: essential hypertension Qualified Code(s): I10 - Essential (primary) hypertension (7) Sepsis Code(s): A41.9 - SEPSIS, UNSPECIFIED ORGANISM Status: Resolved (8) Acute respiratory failure with hypoxia Code(s): J96.01 - ACUTE RESPIRATORY FAILURE WITH HYPOXIA Status: Resolved Plan: Present on admission - Plan continue antibiotics, out of bed/ambulate Clinically improving. Switch to oral levofloxacin HTN controlled. CAD stable. Creatinine 1.38 today. Pt ambulating. Likely home 24-48 h.
[2019-01-27] MEDS: Montelukast Sodium 10 mg Tablet PO SCH ×2 (19:16→21:16)
[2019-01-27] MEDS: Gabapentin 300 MG CAP PO SCH (21:16)
[2019-01-27] MEDS: Zolpidem Tartrate 5 MG TAB PO SCH (21:17)
[2019-01-27] MEDS: Atorvastatin Calcium 10 MG TAB PO SCH (21:17)
[2019-01-28 05:10] LABS: #Eosinphils 0.2 thou/uL (0.0-0.7); #Lymphocytes 1.3 thou/uL (1.20-3.40); #Monocytes 0.5 thou/uL (0.11-0.59); #Neutrophils 4.2 thou/uL (1.40-6.50); %Basophils 0.2 % (0.0-1.0); %Eosinophils 3.7 % (0.0-10.0); %Lymphocytes 21.1 % (21.0-51.0); %Monocytes 8.4 % (0.0-10.0); %Neutrophils 66.6 % (42.0-75.0); Hemoglobin 12.6 g/dL (12.0-16.0); Mean Corpuscular HGB CONC 31.5 g/dL (32.0-36.0); Mean Corpuscular Hemoglobin 27.3 pg (27.0-31.0); Mean Corpuscular Volume 86.6 fL (78.0-98.0); Mean Platelet Volume 6.5 fL (7.4-10.4); Platelet Count 218 thou/uL (130-400); RBC Distribution Width 12.1 % (11.5-14.5); Red Blood Cell (RBC) Count 4.61 mill/uL (4.20-5.40); White Blood Cell (WBC) Count 6.3 thou/uL (4.8-10.8)
[2019-01-28 05:31] LABS: Anion Gap 12 mmol/L (10-20); BUN (Urea Nitrogen) 18 mg/dL (9.8-20.1); Calc. Creatinine Clearance 44 mL/min (70-130); Carbon Dioxide 24 mmol/L (23-31); Chloride 104 mmol/L (98-107); Estimated GFR-MDRD 39; Glucose 93 mg/dL (83-110); Potassium 4.4 mmol/L (3.5-5.1); Sodium 136 mmol/L (136-145)
[2019-01-28] MEDS: Mometasone/Formoterol 120 PUFF INHALER INH SCH (06:42)
[2019-01-28] MEDS: Ipratropium Oral Inhaler INH SCH ×2 (06:43→11:23)
[2019-01-28] MEDS: Famotidine 20 MG TAB PO SCH (08:33)
[2019-01-28] MEDS: Aspirin 81 mg Enteric Coated Tablet PO SCH (08:33)
[2019-01-28] MEDS: Clopidogrel Bisulfate 75 MG TAB PO SCH (08:33)
[2019-01-28] MEDS: Ezetimibe 10 MG TAB PO SCH (08:33)
[2019-01-28] MEDS: ALPRAZolam 0.25 MG TAB PO SCH (08:33)
[2019-01-28] MEDS: Calcium Carbonate + Vit D 250 MG TAB PO SCH (08:34)
[2019-01-28] MEDS: Escitalopram Oxalate 20 mg Tablet PO SCH (08:34)
[2019-01-28] MEDS: guaiFENesin ER 600 MG TAB PO SCH (08:34)
[2019-01-28] MEDS: Spironolactone 25 MG TAB PO SCH (08:34)
[2019-01-28] MEDS: Heparin 5,000 UNITS/ML VIAL SC SCH (08:35)
[2019-01-28] MEDS: Estradiol 1 MG TAB PO SCH (08:35)
[2019-01-28 10:48] VITALS: BP 149/88; TEMP 97.7
--- NOTE | 2019-01-29 03:35 | DIS ---
DATE OF ADMISSION: 01/23/2019 DATE OF DISCHARGE: 01/28/2019 PRIMARY CARE PROVIDER: Luther Lopez. DISCHARGE DIAGNOSES: 1. Acute hypoxic respiratory failure. 2. Chronic obstructive pulmonary disease exacerbation. 3. Acute on chronic stage 3 renal failure. 4. Sepsis. 5. Chronic obstructive pulmonary disease exacerbation. CONDITION OF PATIENT ON THE DAY OF DISCHARGE: Stable. I assessed Ms. An on the day of discharge. She denies any chest pain or shortness of breath. Vital signs are stable. S1 and S2 are heard, regular. Lungs are clear to auscultation bilaterally. DISCHARGE MEDICATIONS: Levofloxacin 750 mg q. 48 hours to start on morning of 01/29/2019. Otherwise, no change was made to her pre-admission home medications. POST-ACUTE CARE FOLLOWUP: The patient is advised to follow up with primary care provider in 3 days. HOSPITAL COURSE: Ms. An is a pleasant 78-year-old lady, who was admitted to [facility] on January 23, 2019, for acute hypoxic respiratory failure and sepsis secondary to multifocal pneumonia. She also had COPD exacerbation. She was treated with intravenous antibiotics. She improved clinically. She did not receive steroids because of allergy. She also did not wish to use nebulizers. She was treated with inhaled bronchodilators. She improved clinically and is being discharged home in a stable condition. On the day of discharge, she has sodium 136, potassium 4.4, creatinine 1.31, white count 6300, hemoglobin 12.6, and platelet count 218,000. DIET: Heart healthy. ACTIVITY: As tolerated. The patient is advised to follow up with primary care provider in 3 days and to have her creatinine checked in 5 to 7 days through her primary care provider's office. Many thanks for allowing me to participate in your patient's care. Please feel free to contact me with any questions or concerns. DISCHARGE DISPOSITION: Home. TIME SPENT: Total amount of time spent coordinating this discharge: 32 minutes. Job ID: [id number]
== END 2019-01-28 11:43 | disposition home or self-care (01) | DRG 871 ==
LOC: ERS 18:04 → T4-B 21:48
PROVIDERS: ADMIT Internal Medicine; ATTEND Internal Medicine
DX: A41.9 Sepsis, unspecified organism (principal); J96.01 Acute respiratory failure with hypoxia; J18.9 Pneumonia, unspecified organism; J44.1 Chronic obstructive pulmonary disease with (acute) exacerbation; N17.9 Acute kidney failure, unspecified; I13.0 Hypertensive heart and chronic kidney disease with heart failure and stage 1 through stage 4 chronic kidney disease, or unspecified chronic kidney disease; J44.0 Chronic obstructive pulmonary disease with (acute) lower respiratory infection; N18.3 Chronic kidney disease, stage 3 (moderate); I25.10 Atherosclerotic heart disease of native coronary artery without angina pectoris; Z95.1 Presence of aortocoronary bypass graft; Z90.49 Acquired absence of other specified parts of digestive tract; Z90.710 Acquired absence of both cervix and uterus; Z95.810 Presence of automatic (implantable) cardiac defibrillator; I50.9 Heart failure, unspecified; F32.9 Major depressive disorder, single episode, unspecified; F41.9 Anxiety disorder, unspecified; Z88.1 Allergy status to other antibiotic agents; Z88.5 Allergy status to narcotic agent; Z88.0 Allergy status to penicillin; Z88.2 Allergy status to sulfonamides; Z88.8 Allergy status to other drugs, medicaments and biological substances; Z91.048 Other nonmedicinal substance allergy status
CPT/HCPCS: 36415; 71045; 74177; 80048; 80053; 81003; 81015; 83605; 83880; 84484; 85025; 87040; 87086; 87804; 94664; 96365; 96366; 96367; J0456; J0696; J1100; J1644; J3475; J3490; J7050; Q9967

== ENCOUNTER 2020-06-16 09:47 | Emergency (ER) | payer MEDICARE ==
[2020-06-16] MEDS ORDERED: Boostrix 0.5 ML (Tdap) VIAL ONE (13:20)
[2020-06-16] MEDS ORDERED: Lidocaine 1% w/Epinephrine 1:100K 20 ML VIAL ONE (13:20)
== END 2020-06-16 15:22 | disposition home or self-care (01) ==
LOC: ERS 09:47
DX: S51.012A Laceration without foreign body of left elbow, initial encounter (principal); I25.10 Atherosclerotic heart disease of native coronary artery without angina pectoris; I50.9 Heart failure, unspecified; J43.9 Emphysema, unspecified; Z87.891 Personal history of nicotine dependence; W19.XXXA Unspecified fall, initial encounter
CPT/HCPCS: 12002; 90471; 90715

== ENCOUNTER 2020-07-06 04:57 | Inpatient (IN) | payer MEDICARE ==
[2020-07-06 06:09] LABS: Hemoglobin 11.8 g/dL (12.0-16.0); Mean Corpuscular HGB CONC 31.5 g/dL (32.0-36.0); Mean Corpuscular Hemoglobin 27.7 pg (27.0-31.0); Mean Platelet Volume 6.7 fL (7.4-10.4); Platelet Count 201 thou/uL (130-400); RBC Distribution Width 12.7 % (11.5-14.5); Red Blood Cell (RBC) Count 4.27 mill/uL (4.20-5.40)
[2020-07-06 06:12] LABS: Band 21 % (5-11); Lymphocytes 2 % (21-51); MDiff Complete? YES; Monocytes 14 % (0-10); Neutrophil 63 % (42-75)
[2020-07-06] MEDS ORDERED: cefTRIAXone\\ROCEPHIN 2 GM VIAL ONE (06:18)
[2020-07-06 06:28] LABS: ALT (SGPT) 12 U/L (8-55); AST (SGOT) 24 U/L (5-34); Albumin 3.5 g/dL (3.4-4.8); Alkaline Phosphatase 95 U/L (40-110); Anion Gap 15 mmol/L (10-20); BUN (Urea Nitrogen) 17 mg/dL (9.8-20.1); Bilirubin, Total 1.1 mg/dL (0.2-1.2); Calc. Creatinine Clearance 0 mL/min (70-130); Calcium 8.9 mg/dL (7.8-10.44); Carbon Dioxide 23 mmol/L (23-31); Chloride 100 mmol/L (98-107); Globulin 2.8 g/dL (2.4-3.5); Glucose 83 mg/dL (83-110); Potassium 4.4 mmol/L (3.5-5.1); Protein, Total 6.3 g/dL (5.8-8.1); Sodium 134 mmol/L (136-145)
[2020-07-06 06:47] LABS: Bacteria/HPF None Seen HPF (None Seen); Bilirubin Negative (Negative); Blood, Urine Negative (Negative); Clarity Clear (Clear); Glucose, Urine (Dipstick) Normal (Negative); Ketone, Urine Negative (Negative); Leukocyte Negative Leu/uL (Negative); Nitrite Negative (Negative); Protein, Urine (Dipstick) 100 mg/dL (Neg-Trace); RBC/HPF None Seen HPF (0-3); Specific Gravity, Urine 1.022 (1.002-1.036); Squamous Epithelial None Seen HPF (0-3); Urobilinogen Normal mg/dL (Less than 2); WBC/HPF 0-3 HPF (0-3); pH, Urine 6.5 (5.0-9.0)
[2020-07-06] MEDS ORDERED: Azithromycin 500 MG VIAL ONE (06:48)
[2020-07-06 06:59] LABS: SARS-CoV-2 NAA Rapid Test Not Detected (NotDetected)
[2020-07-06 09:10] LABS: Analyzer IN Cardio ER; Base Excess (BEa) 0.6 mEq/L (-2.0 to +3.0); CO2 Tension 44.7 mmHg (35.0-45.0); Calcium, Ionized (arterial) 1.17 mmol/L (1.12-1.30); Carboxyhemoglobin (COHb) 0.5 gm% (0.0-3.0); Hemoglobin (Hb) 11.5 g/dL (12.0-16.0); Potassium - ABG Lab 4.37 mmol/L (3.70-5.30); pH, Arterial 7.38 (7.35-7.45)
[2020-07-06] MEDS ORDERED: Simvastatin 20 MG TAB PO SCH (09:15)
[2020-07-06 09:16] LABS: ALV-art Gradient 87.965 mmHg (0-20); O2 Tension (PaO2), arterial 55.8 mmHg (> 70.0); Puncture Site LRA
[2020-07-06] MEDS ORDERED: Albuterol Sulfate 2.5 mg/3 ml Neb NEB PRN (09:32)
[2020-07-06] MEDS ORDERED: Furosemide 40 MG/4 ML VIAL SLOW IVP SCH (09:45)
[2020-07-06] MEDS ORDERED: Magnesium 2 GM/50 ML 2 GM in Premix Bag 1 BAG IVPB SCH (10:00)
[2020-07-06 10:08] VITALS: BMI 33.2
[2020-07-06] MEDS: Levalbuterol HCl 0.63 MG/3 ML NEB NEB SCH ×4 (10:17→22:53)
[2020-07-06] MEDS: Aspirin 81 mg Enteric Coated Tablet PO SCH (10:37)
[2020-07-06] MEDS: Clopidogrel Bisulfate 75 MG TAB PO SCH (10:37)
[2020-07-06] MEDS: guaiFENesin ER 600 MG TAB PO SCH ×2 (10:37→21:27)
[2020-07-06] MEDS: HYDROcodone/Acetaminophen 10/325 mg Tablet PO PRN (18:25)
[2020-07-06] MEDS ORDERED: Mometasone 200 MCG/Formoterol 5 MCG 120 PUFF INHALER INH SCH (18:30)
[2020-07-06] MEDS: Mometasone 200 MCG/Formoterol 5 MCG 120 PUFF INHALER INH SCH (19:21)
[2020-07-06] MEDS: Montelukast Sodium 10 mg Tablet PO SCH (21:26)
[2020-07-06] MEDS: Zolpidem Tartrate 5 MG TAB PO SCH (21:27)
[2020-07-07] MEDS: Levalbuterol HCl 0.63 MG/3 ML NEB NEB SCH ×6 (02:50→23:17)
[2020-07-07] MEDS: Guaifenesin DM 100-10/5 ML UDCUP PO PRN ×3 (03:14→20:31)
[2020-07-07 04:50] LABS: #Eosinphils 0.2 thou/uL (0.0-0.7); #Lymphocytes 0.7 thou/uL (1.20-3.40); #Monocytes 1.1 thou/uL (0.11-0.59); #Neutrophils 13.4 thou/uL (1.40-6.50); %Eosinophils 1.1 % (0.0-10.0); %Lymphocytes 4.8 % (21.0-51.0); %Monocytes 6.9 % (0.0-10.0); %Neutrophils 87.2 % (42.0-75.0); Hemoglobin 11.6 g/dL (12.0-16.0); Mean Corpuscular HGB CONC 31.9 g/dL (32.0-36.0); Mean Corpuscular Hemoglobin 27.8 pg (27.0-31.0); Mean Corpuscular Volume 87.2 fL (78.0-98.0); Mean Platelet Volume 6.8 fL (7.4-10.4); Platelet Count 200 thou/uL (130-400); RBC Distribution Width 12.7 % (11.5-14.5); Red Blood Cell (RBC) Count 4.18 mill/uL (4.20-5.40); White Blood Cell (WBC) Count 15.4 thou/uL (4.8-10.8)
[2020-07-07 05:15] LABS: Anion Gap 12 mmol/L (10-20); BUN (Urea Nitrogen) 22 mg/dL (9.8-20.1); Calc. Creatinine Clearance 35 mL/min (70-130); Calcium 9.1 mg/dL (7.8-10.44); Carbon Dioxide 28 mmol/L (23-31); Chloride 96 mmol/L (98-107); Glucose 124 mg/dL (83-110); Potassium 3.5 mmol/L (3.5-5.1); Sodium 132 mmol/L (136-145)
[2020-07-07] MEDS: cefTRIAXone\\ROCEPHIN 1 GM in Sodium Chloride 0.9% 100 ML IVPB SCH (05:35)
[2020-07-07] MEDS: Mometasone 200 MCG/Formoterol 5 MCG 120 PUFF INHALER INH SCH ×2 (07:50→19:42)
[2020-07-07] MEDS: Clopidogrel Bisulfate 75 MG TAB PO SCH (08:58)
[2020-07-07] MEDS: guaiFENesin ER 600 MG TAB PO SCH ×2 (08:59→20:31)
[2020-07-07] MEDS: Calcium Carbonate 600 MG + Vit D TAB PO SCH (08:59)
[2020-07-07] MEDS ORDERED: Simvastatin 10 MG TAB PO SCH (09:00)
[2020-07-07] MEDS ORDERED: Ezetimibe 10 MG TAB PO SCH (09:00)
[2020-07-07] MEDS: Azithromycin 250 MG TAB PO SCH (09:00)
[2020-07-07] MEDS: Aspirin 81 mg Enteric Coated Tablet PO SCH (09:01)
[2020-07-07] MEDS: HYDROcodone/Acetaminophen 10/325 mg Tablet PO PRN (13:43)
[2020-07-07] MEDS: Simvastatin 10 MG TAB PO SCH (20:31)
[2020-07-07] MEDS: Zolpidem Tartrate 5 MG TAB PO SCH (20:31)
[2020-07-07] MEDS: Montelukast Sodium 10 mg Tablet PO SCH (20:31)
[2020-07-07] MEDS: Ezetimibe 10 MG TAB PO SCH (20:31)
[2020-07-08] MEDS: Levalbuterol HCl 0.63 MG/3 ML NEB NEB SCH ×3 (02:19→10:38)
[2020-07-08 04:41] LABS: #Eosinphils 0.3 thou/uL (0.0-0.7); #Lymphocytes 0.7 thou/uL (1.20-3.40); #Monocytes 1.2 thou/uL (0.11-0.59); #Neutrophils 11.4 thou/uL (1.40-6.50); %Basophils 0.1 % (0.0-1.0); %Lymphocytes 5.4 % (21.0-51.0); %Monocytes 8.8 % (0.0-10.0); %Neutrophils 83.8 % (42.0-75.0); Hemoglobin 11.3 g/dL (12.0-16.0); Mean Corpuscular HGB CONC 30.5 g/dL (32.0-36.0); Mean Corpuscular Hemoglobin 26.5 pg (27.0-31.0); Mean Corpuscular Volume 86.9 fL (78.0-98.0); Mean Platelet Volume 6.5 fL (7.4-10.4); Platelet Count 231 thou/uL (130-400); RBC Distribution Width 12.7 % (11.5-14.5); Red Blood Cell (RBC) Count 4.28 mill/uL (4.20-5.40); White Blood Cell (WBC) Count 13.6 thou/uL (4.8-10.8)
[2020-07-08 05:02] LABS: Anion Gap 12 mmol/L (10-20); BUN (Urea Nitrogen) 14 mg/dL (9.8-20.1); Calc. Creatinine Clearance 50 mL/min (70-130); Carbon Dioxide 28 mmol/L (23-31); Chloride 96 mmol/L (98-107); Glucose 118 mg/dL (83-110); Potassium 3.7 mmol/L (3.5-5.1); Sodium 132 mmol/L (136-145)
[2020-07-08] MEDS: cefTRIAXone\\ROCEPHIN 1 GM in Sodium Chloride 0.9% 100 ML IVPB SCH (05:08)
[2020-07-08] MEDS: HYDROcodone/Acetaminophen 10/325 mg Tablet PO PRN ×3 (05:08→20:33)
[2020-07-08] MEDS: Mometasone 200 MCG/Formoterol 5 MCG 120 PUFF INHALER INH SCH ×2 (07:10→19:00)
[2020-07-08] MEDS ORDERED: Oxybutynin 5 MG TAB PO PRN (09:01)
[2020-07-08] MEDS ORDERED: hydrALAZINE 20 MG/ML VIAL SLOW IVP PRN (09:02)
[2020-07-08] MEDS ORDERED: Senokot S 8.6-50 MG TAB PO PRN (09:02)
[2020-07-08] MEDS ORDERED: Metoclopramide HCl 10 MG/2 ML VIAL IVP PRN (09:02)
[2020-07-08] MEDS ORDERED: Cepastat Lozenges 1 LOZ PO PRN (09:02)
[2020-07-08] MEDS ORDERED: Calcium Carbonate 500 MG ChewTAB PO PRN (09:02)
[2020-07-08] MEDS ORDERED: Loratadine 10 MG TAB PO PRN (09:02)
[2020-07-08] MEDS ORDERED: Sodium Chloride 0.65% Nasal 44 ML BOT EA NARE PRN (09:02)
[2020-07-08] MEDS ORDERED: GUAIFENESIN SF SOLN 200 MG/10 ML UDCUP PO PRN (09:02)
[2020-07-08] MEDS ORDERED: Loperamide HCl 2 MG CAP PO PRN (09:02)
[2020-07-08] MEDS ORDERED: Bisacodyl 5 MG TAB PO PRN (09:02)
[2020-07-08] MEDS: Calcium Carbonate 600 MG + Vit D TAB PO SCH (10:10)
[2020-07-08] MEDS: Clopidogrel Bisulfate 75 MG TAB PO SCH (10:11)
[2020-07-08] MEDS: Azithromycin 250 MG TAB PO SCH (10:11)
[2020-07-08] MEDS: guaiFENesin ER 600 MG TAB PO SCH ×2 (10:11→20:33)
[2020-07-08] MEDS: Aspirin 81 mg Enteric Coated Tablet PO SCH (10:11)
[2020-07-08] MEDS ORDERED: Heparin 5,000 UNITS/ML VIAL SC SCH (12:00)
[2020-07-08] MEDS: Ipratropium Bromide 2.5 ml Neb NEB SCH ×3 (14:15→22:25)
[2020-07-08] MEDS: Levalbuterol HCl 1.25 MG/0.5 ML NEB NEB SCH ×3 (14:15→22:26)
[2020-07-08] MEDS: Zolpidem Tartrate 5 MG TAB PO PRN (20:33)
[2020-07-08] MEDS: ALPRAZolam 0.25 MG TAB PO SCH (20:33)
[2020-07-08] MEDS: Montelukast Sodium 10 mg Tablet PO SCH (20:33)
[2020-07-08] MEDS: Guaifenesin DM 100-10/5 ML UDCUP PO PRN (20:34)
[2020-07-08] MEDS: Heparin 5,000 UNITS/ML VIAL SC SCH (20:34)
[2020-07-09] MEDS: Ipratropium Bromide 2.5 ml Neb NEB SCH ×7 (02:20→22:54)
[2020-07-09] MEDS: Levalbuterol HCl 1.25 MG/0.5 ML NEB NEB SCH ×7 (03:39→22:57)
[2020-07-09] MEDS: HYDROcodone/Acetaminophen 10/325 mg Tablet PO PRN ×3 (03:52→18:18)
[2020-07-09] MEDS: cefTRIAXone\\ROCEPHIN 1 GM in Sodium Chloride 0.9% 100 ML IVPB SCH (05:04)
[2020-07-09 05:11] LABS: #Eosinphils 0.2 thou/uL (0.0-0.7); #Lymphocytes 0.7 thou/uL (1.20-3.40); #Monocytes 1.2 thou/uL (0.11-0.59); #Neutrophils 10.7 thou/uL (1.40-6.50); %Basophils 0.1 % (0.0-1.0); %Eosinophils 1.9 % (0.0-10.0); %Lymphocytes 5.2 % (21.0-51.0); %Monocytes 9.2 % (0.0-10.0); %Neutrophils 83.7 % (42.0-75.0); Hemoglobin 11.5 g/dL (12.0-16.0); Mean Corpuscular HGB CONC 31.5 g/dL (32.0-36.0); Mean Corpuscular Hemoglobin 27.3 pg (27.0-31.0); Mean Corpuscular Volume 86.8 fL (78.0-98.0); Mean Platelet Volume 6.6 fL (7.4-10.4); Platelet Count 240 thou/uL (130-400); RBC Distribution Width 12.7 % (11.5-14.5); Red Blood Cell (RBC) Count 4.19 mill/uL (4.20-5.40); White Blood Cell (WBC) Count 12.8 thou/uL (4.8-10.8)
[2020-07-09 05:40] LABS: ALT (SGPT) 15 U/L (8-55); AST (SGOT) 23 U/L (5-34); Albumin 3.2 g/dL (3.4-4.8); Alkaline Phosphatase 128 U/L (40-110); Anion Gap 14 mmol/L (10-20); BUN (Urea Nitrogen) 13 mg/dL (9.8-20.1); Bilirubin, Total 0.5 mg/dL (0.2-1.2); Calc. Creatinine Clearance 51 mL/min (70-130); Carbon Dioxide 27 mmol/L (23-31); Chloride 97 mmol/L (98-107); Globulin 3.7 g/dL (2.4-3.5); Glucose 99 mg/dL (83-110); Potassium 3.7 mmol/L (3.5-5.1); Protein, Total 6.9 g/dL (5.8-8.1); Sodium 134 mmol/L (136-145)
[2020-07-09] MEDS: Mometasone 200 MCG/Formoterol 5 MCG 120 PUFF INHALER INH SCH ×2 (07:19→18:27)
[2020-07-09] MEDS: Guaifenesin DM 100-10/5 ML UDCUP PO PRN ×2 (09:59→20:51)
[2020-07-09] MEDS: ALPRAZolam 0.25 MG TAB PO SCH ×2 (10:02→20:41)
[2020-07-09] MEDS: Clopidogrel Bisulfate 75 MG TAB PO SCH (10:03)
[2020-07-09] MEDS: Calcium Carbonate 600 MG + Vit D TAB PO SCH (10:03)
[2020-07-09] MEDS: Azithromycin 250 MG TAB PO SCH (10:03)
[2020-07-09] MEDS: Aspirin 81 mg Enteric Coated Tablet PO SCH (10:03)
[2020-07-09] MEDS: Escitalopram Oxalate 20 mg Tablet PO SCH (10:03)
[2020-07-09] MEDS: guaiFENesin ER 600 MG TAB PO SCH ×2 (10:03→20:40)
[2020-07-09] MEDS: Heparin 5,000 UNITS/ML VIAL SC SCH ×2 (10:04→20:42)
[2020-07-09] MEDS: Ezetimibe 10 MG TAB PO SCH (20:40)
[2020-07-09] MEDS: Simvastatin 10 MG TAB PO SCH (20:41)
[2020-07-09] MEDS: Zolpidem Tartrate 5 MG TAB PO PRN (20:41)
[2020-07-09] MEDS: Gabapentin 300 MG CAP PO SCH (20:41)
[2020-07-09] MEDS: Montelukast Sodium 10 mg Tablet PO SCH (20:41)
[2020-07-09] MEDS ORDERED: Non-Formulary Item 1 EACH (Gabapentin [Neurontin] 600 MG Tablet) PO SCH (21:00)
[2020-07-10] MEDS: Ipratropium Bromide 2.5 ml Neb NEB SCH ×6 (02:24→22:18)
[2020-07-10] MEDS: Levalbuterol HCl 1.25 MG/0.5 ML NEB NEB SCH ×6 (02:25→22:20)
[2020-07-10 05:00] LABS: #Eosinphils 0.4 thou/uL (0.0-0.7); #Lymphocytes 1.1 thou/uL (1.20-3.40); #Monocytes 1.2 thou/uL (0.11-0.59); #Neutrophils 8.7 thou/uL (1.40-6.50); %Basophils 0.3 % (0.0-1.0); %Eosinophils 3.5 % (0.0-10.0); %Lymphocytes 9.2 % (21.0-51.0); %Monocytes 10.5 % (0.0-10.0); %Neutrophils 76.5 % (42.0-75.0); Mean Corpuscular Volume 87.1 fL (78.0-98.0); Mean Platelet Volume 6.3 fL (7.4-10.4); Platelet Count 221 thou/uL (130-400); RBC Distribution Width 12.7 % (11.5-14.5); Red Blood Cell (RBC) Count 4.09 mill/uL (4.20-5.40); White Blood Cell (WBC) Count 11.4 thou/uL (4.8-10.8)
[2020-07-10] MEDS: cefTRIAXone\\ROCEPHIN 1 GM in Sodium Chloride 0.9% 100 ML IVPB SCH (05:18)
[2020-07-10 05:21] LABS: Anion Gap 14 mmol/L (10-20); BUN (Urea Nitrogen) 12 mg/dL (9.8-20.1); Calc. Creatinine Clearance 54 mL/min (70-130); Calcium 8.9 mg/dL (7.8-10.44); Carbon Dioxide 25 mmol/L (23-31); Chloride 97 mmol/L (98-107); Glucose 91 mg/dL (83-110); Potassium 3.5 mmol/L (3.5-5.1); Sodium 132 mmol/L (136-145)
[2020-07-10] MEDS: Mometasone 200 MCG/Formoterol 5 MCG 120 PUFF INHALER INH SCH ×2 (06:55→18:45)
[2020-07-10] MEDS: Clopidogrel Bisulfate 75 MG TAB PO SCH (08:26)
[2020-07-10] MEDS: Calcium Carbonate 600 MG + Vit D TAB PO SCH (08:26)
[2020-07-10] MEDS: Escitalopram Oxalate 20 mg Tablet PO SCH (08:26)
[2020-07-10] MEDS: ALPRAZolam 0.25 MG TAB PO SCH ×2 (08:26→21:06)
[2020-07-10] MEDS: Azithromycin 250 MG TAB PO SCH (08:26)
[2020-07-10] MEDS: HYDROcodone/Acetaminophen 10/325 mg Tablet PO PRN ×2 (08:26→15:10)
[2020-07-10] MEDS: guaiFENesin ER 600 MG TAB PO SCH ×2 (08:27→21:06)
[2020-07-10] MEDS: Heparin 5,000 UNITS/ML VIAL SC SCH ×2 (08:27→21:04)
[2020-07-10] MEDS: Aspirin 81 mg Enteric Coated Tablet PO SCH (08:29)
[2020-07-10] MEDS ORDERED: Furosemide 20 MG/2 ML VIAL SLOW IVP SCH (17:00)
[2020-07-10] MEDS ORDERED: NIFEdipine XL 30 MG TAB PO SCH (17:15)
[2020-07-10] MEDS: Montelukast Sodium 10 mg Tablet PO SCH (21:05)
[2020-07-10] MEDS: Gabapentin 300 MG CAP PO SCH (21:05)
[2020-07-11] MEDS: Ipratropium Bromide 2.5 ml Neb NEB SCH ×6 (03:01→22:24)
[2020-07-11] MEDS: Levalbuterol HCl 1.25 MG/0.5 ML NEB NEB SCH ×6 (03:01→22:22)
[2020-07-11] MEDS: cefTRIAXone\\ROCEPHIN 1 GM in Sodium Chloride 0.9% 100 ML IVPB SCH (05:50)
[2020-07-11] MEDS: Mometasone 200 MCG/Formoterol 5 MCG 120 PUFF INHALER INH SCH ×2 (07:06→18:32)
[2020-07-11] MEDS: Heparin 5,000 UNITS/ML VIAL SC SCH ×2 (08:25→22:10)
[2020-07-11] MEDS: NIFEdipine XL 30 MG TAB PO SCH ×2 (08:25→08:30)
[2020-07-11] MEDS: Clopidogrel Bisulfate 75 MG TAB PO SCH (08:25)
[2020-07-11] MEDS: guaiFENesin ER 600 MG TAB PO SCH ×2 (08:25→22:12)
[2020-07-11] MEDS: HYDROcodone/Acetaminophen 10/325 mg Tablet PO PRN ×2 (08:26→19:28)
[2020-07-11] MEDS: ALPRAZolam 0.25 MG TAB PO SCH ×2 (08:26→22:12)
[2020-07-11] MEDS: Escitalopram Oxalate 20 mg Tablet PO SCH (08:26)
[2020-07-11] MEDS: Aspirin 81 mg Enteric Coated Tablet PO SCH ×2 (08:26→08:29)
[2020-07-11] MEDS: Calcium Carbonate 600 MG + Vit D TAB PO SCH (08:27)
[2020-07-11] MEDS: Montelukast Sodium 10 mg Tablet PO SCH (08:27)
[2020-07-11] MEDS ORDERED: Furosemide 20 MG/2 ML VIAL SLOW IVP SCH ×2 (09:00)
[2020-07-11 09:56] LABS: Anion Gap 14 mmol/L (10-20); BUN (Urea Nitrogen) 15 mg/dL (9.8-20.1); Calc. Creatinine Clearance 45 mL/min (70-130); Calcium 9.7 mg/dL (7.8-10.44); Carbon Dioxide 31 mmol/L (23-31); Chloride 96 mmol/L (98-107); Glucose 159 mg/dL (83-110); Magnesium 2.1 mg/dL (1.6-2.6); Potassium 3.3 mmol/L (3.5-5.1); Sodium 138 mmol/L (136-145)
[2020-07-11 10:00] LABS: #Eosinphils 0.5 thou/uL (0.0-0.7); #Monocytes 0.8 thou/uL (0.11-0.59); #Neutrophils 7.4 thou/uL (1.40-6.50); %Basophils 0.4 % (0.0-1.0); %Lymphocytes 10.6 % (21.0-51.0); %Monocytes 8.4 % (0.0-10.0); %Neutrophils 75.6 % (42.0-75.0); Hemoglobin 12.4 g/dL (12.0-16.0); Mean Corpuscular HGB CONC 30.6 g/dL (32.0-36.0); Mean Corpuscular Hemoglobin 27.2 pg (27.0-31.0); Mean Platelet Volume 6.8 fL (7.4-10.4); Platelet Count 269 thou/uL (130-400); RBC Distribution Width 12.9 % (11.5-14.5); Red Blood Cell (RBC) Count 4.54 mill/uL (4.20-5.40); White Blood Cell (WBC) Count 9.8 thou/uL (4.8-10.8)
[2020-07-11] MEDS ORDERED: Potassium Chloride 20 MEQ TAB PO SCH (10:15)
[2020-07-11 18:01] LABS: Anion Gap 18 mmol/L (10-20); BUN (Urea Nitrogen) 16 mg/dL (9.8-20.1); Calc. Creatinine Clearance 42 mL/min (70-130); Calcium 9.7 mg/dL (7.8-10.44); Carbon Dioxide 29 mmol/L (23-31); Chloride 96 mmol/L (98-107); Glucose 99 mg/dL (83-110); Magnesium 2.2 mg/dL (1.6-2.6); Potassium 3.6 mmol/L (3.5-5.1); Sodium 139 mmol/L (136-145)
[2020-07-11] MEDS ORDERED: Sodium Chloride 0.9% 1,000 ML IV SCH (18:30)
[2020-07-11] MEDS: Ezetimibe 10 MG TAB PO SCH (22:10)
[2020-07-11] MEDS: Doxycycline 100 MG CAP PO SCH (22:10)
[2020-07-11] MEDS: Gabapentin 300 MG CAP PO SCH (22:11)
[2020-07-11] MEDS: Simvastatin 10 MG TAB PO SCH (22:13)
[2020-07-12] MEDS: Ipratropium Bromide 2.5 ml Neb NEB SCH ×4 (03:04→13:28)
[2020-07-12] MEDS: Levalbuterol HCl 1.25 MG/0.5 ML NEB NEB SCH ×4 (03:04→13:28)
[2020-07-12] MEDS: Mometasone 200 MCG/Formoterol 5 MCG 120 PUFF INHALER INH SCH (07:04)
[2020-07-12] MEDS: Doxycycline 100 MG CAP PO SCH (07:45)
[2020-07-12] MEDS: NIFEdipine XL 30 MG TAB PO SCH (07:45)
[2020-07-12] MEDS: ALPRAZolam 0.25 MG TAB PO SCH (07:45)
[2020-07-12] MEDS: Calcium Carbonate 600 MG + Vit D TAB PO SCH (07:46)
[2020-07-12] MEDS: Montelukast Sodium 10 mg Tablet PO SCH (07:46)
[2020-07-12] MEDS: Clopidogrel Bisulfate 75 MG TAB PO SCH (07:46)
[2020-07-12] MEDS: guaiFENesin ER 600 MG TAB PO SCH (07:46)
[2020-07-12] MEDS: Escitalopram Oxalate 20 mg Tablet PO SCH (07:46)
[2020-07-12] MEDS: Aspirin 81 mg Enteric Coated Tablet PO SCH (07:46)
[2020-07-12] MEDS: Heparin 5,000 UNITS/ML VIAL SC SCH (07:46)
[2020-07-12 10:18] LABS: Anion Gap 14 mmol/L (10-20); BUN (Urea Nitrogen) 16 mg/dL (9.8-20.1); Calc. Creatinine Clearance 49 mL/min (70-130); Calcium 9.3 mg/dL (7.8-10.44); Carbon Dioxide 31 mmol/L (23-31); Chloride 97 mmol/L (98-107); Glucose 99 mg/dL (83-110); Potassium 3.8 mmol/L (3.5-5.1); Sodium 138 mmol/L (136-145)
[2020-07-12 11:24] VITALS: BP 123/59; TEMP 97.5
[2020-07-12] MEDS: HYDROcodone/Acetaminophen 10/325 mg Tablet PO PRN (13:40)
== END 2020-07-12 14:11 | disposition home or self-care (01) | DRG 871 ==
LOC: SUATTDRO 04:57 → ERS 04:57 → 2NO 07:58
PROVIDERS: ADMIT Student in an Organized Health Care Education/Training Program; ATTEND Internal Medicine
DX: A41.9 Sepsis, unspecified organism (principal); J18.9 Pneumonia, unspecified organism; J96.21 Acute and chronic respiratory failure with hypoxia; I50.33 Acute on chronic diastolic (congestive) heart failure; J44.1 Chronic obstructive pulmonary disease with (acute) exacerbation; I13.0 Hypertensive heart and chronic kidney disease with heart failure and stage 1 through stage 4 chronic kidney disease, or unspecified chronic kidney disease; E87.1 Hypo-osmolality and hyponatremia; N17.9 Acute kidney failure, unspecified; R65.20 Severe sepsis without septic shock; M25.511 Pain in right shoulder; K21.9 Gastro-esophageal reflux disease without esophagitis; E78.5 Hyperlipidemia, unspecified; J84.10 Pulmonary fibrosis, unspecified; R79.89 Other specified abnormal findings of blood chemistry; N18.30 Chronic kidney disease, stage 3 unspecified; D63.1 Anemia in chronic kidney disease; M25.512 Pain in left shoulder; I25.10 Atherosclerotic heart disease of native coronary artery without angina pectoris; G89.4 Chronic pain syndrome; F41.9 Anxiety disorder, unspecified; F32.9 Major depressive disorder, single episode, unspecified; E11.22 Type 2 diabetes mellitus with diabetic chronic kidney disease; Z20.822 Contact with and (suspected) exposure to COVID-19; N32.81 Overactive bladder; T38.0X5A Adverse effect of glucocorticoids and synthetic analogues, initial encounter; Z90.49 Acquired absence of other specified parts of digestive tract; Z87.891 Personal history of nicotine dependence; Z99.81 Dependence on supplemental oxygen; Z88.8 Allergy status to other drugs, medicaments and biological substances; Z88.0 Allergy status to penicillin; Z88.6 Allergy status to analgesic agent; Z88.5 Allergy status to narcotic agent; Z88.2 Allergy status to sulfonamides; Z91.048 Other nonmedicinal substance allergy status; Z79.82 Long term (current) use of aspirin; Z79.899 Other long term (current) drug therapy; Z90.710 Acquired absence of both cervix and uterus; Z95.1 Presence of aortocoronary bypass graft; Z98.890 Other specified postprocedural states; Z95.810 Presence of automatic (implantable) cardiac defibrillator
CPT/HCPCS: 0240U; 36415; 36600; 51701; 71045; 71250; 80048; 80053; 81003; 81015; 82805; 83605; 83735; 83880; 84484; 85025; 87040; 93005; 93010; 93306; 94640; 94664; 96365; 96367; J0456; J0696; J1644; J1940; J3475; J3490; J7612; J7614